=== PATIENT | female | born 1940 | race Caucasian/White ===

== ENCOUNTER 2018-05-08 21:02 | Observation (INO) ==
[2018-05-08 21:56] LABS: Baso # (Auto) 0.1 th/mm3 (0.0-0.2); Baso % (Auto) 0.4 % (0.0-2.0); Eos # (Auto) 0.1 th/mm3 (0.0-0.4); Eos % (Auto) 0.6 % (0.0-4.0); Hematocrit 36.2 % (35.0-46.0); Hemoglobin 12.2 gm/dL (11.6-15.3); Lymph # (Auto) 1.2 th/mm3 (1.0-4.8); Lymph % (Auto) 9.9 % (9.0-44.0); Mean Corpuscular HGB Conc 33.8 % (32.0-36.0); Mean Corpuscular Hemoglobin 32.9 pg (27.0-34.0); Mean Corpuscular Volume 97.4 fL (80.0-100.0); Mean Platelet Volume 8.4 fL (7.0-11.0); Mono # (Auto) 0.7 th/mm3 (0.0-0.9); Mono % (Auto) 5.7 % (0.0-8.0); Neut % (Auto) 83.4 % (16.0-70.0); Platelet Count 289 th/mm3 (150-450); Red Blood Count 3.72 mil/mm3 (4.00-5.30); Red Cell Distribution Width 13.9 % (11.6-17.2)
--- NOTE | 2018-05-08 21:58 | ED ---
HPI General Chief complaint: Psychiatric Symptoms Stated complaint: Psych Screen/[facility] Time Seen by Provider: 05/08/18 21:04 Source: patient, EMS and police Mode of arrival: EMS Limitations: no limitations History of Present Illness HPI narrative: Patient is a 78-year-old female presenting to the emergency department under Nick act for psychiatric evaluation. Patient presented to the emergency department via EMS, she was found by police during a well check on her floor at home. Patient was unable to stand, her home was deplorable, covered in cat feces. Patient was sitting in her own feces and urine. Patient left AMA from [facility] with a man named Albaro 3 days ago. Patient apparently hired this man to help take care of her, police report that he has stolen her money and her house is in a deplorable condition. Patient has been eating the same plate of leftover food for the last 2 days. Patient wears oxygen, 2 L continuously secondary to COPD. She is has not had any in several days, she states that Albaro told her that she was doing good without it. DCF was notified by the police department. Patient presented complaining of midsternal chest pain. She denied any radiation. She states she felt nauseated when the chest pain started prior to arrival. Patient denies any other complaints. She denies any abdominal pain, fever, chills, headache, head injury. Related Data Home Medications Medication Instructions Recorded Confirmed dexlansoprazole [Dexilant] 60 mg PO DAILY 05/08/18 05/08/18 hydrocodone-acetaminophen 1 tab PO Q4-6H PRN 05/08/18 05/08/18 levothyroxine 50 mcg PO DAILY 05/08/18 05/08/18 meclizine 25 mg PO TID 05/08/18 05/08/18 nebivolol [Bystolic] 20 mg PO DAILY 05/08/18 05/08/18 diazepam [Valium] 5 mg TID PRN 05/09/18 05/09/18 Previous Rx's Medication Instructions Recorded acidophilus-sporogenes 1 tab PO TID #36 tab 05/10/18 [Acidophilus Ex Str (L. sporog)] budesonide-formoterol [Symbicort] 2 puff INH BID g 05/10/18 ipratropium-albuterol 1 amp NEB Q4HR NEB PRN ml 05/10/18 levofloxacin [Levaquin] 750 mg PO DAILY #5 tab 05/10/18 nystatin [Nystop] 1 applicatio TOPICAL QID #1 g 05/10/18 prednisone 40 mg PO DAILY #6 tab 05/10/18 Allergies Allergy/AdvReac Type Severity Reaction Status Date / Time penicillin G Allergy Severe Swelling Verified 05/08/18 21:32 Sulfa (Sulfonamide Allergy Severe Swelling Verified 05/08/18 21:32 Antibiotics) diphenhydramine Allergy Intermediate Swelling Verified 05/08/18 21:32 naproxen Allergy Intermediate Swelling Verified 05/08/18 21:32 verapamil Allergy Intermediate Swelling Verified 05/08/18 21:32 TAPE Allergy Intermediate Swelling Uncoded 05/08/18 21:32 *MDRO Multi-Drug Resistant AdvReac Unknown Swelling Uncoded 05/08/18 21:32 Organism Review of Systems ROS: all other systems reviewed are negative [facility] Medical History Medical History COPD (chronic obstructive pulmonary disease) (Acute) High cholesterol (Acute) Hypertension (Acute) Hypothyroidism (Acute) Legally blind (Acute) Surgical History Surgical History History of back surgery (Acute) Hx of removal of ovary (Acute) Family History Family History Other No pertinent family history Social History Social History Substance History: No History of Abuse Second Hand Smoke Exposure: No Smoking Status: Former smoker How Often Do You Have a Drink Containing Alcohol: Monthly or less Immunization History Tetanus Immunization: Unsure Exam Narrative Exam Narrative: GENERAL: Overweight, well-developed, disheveled elderly female. Presenting in no acute distress. SKIN: Focused skin assessment warm/dry. Erythema to bilateral buttocks. HEAD: Atraumatic. Normocephalic. EYES: Pupils equal and round. No scleral icterus. No injection or drainage. ENT: No nasal bleeding or discharge. Mucous membranes pink and moist. NECK: Trachea midline. No JVD. CARDIOVASCULAR: Regular rate and rhythm. No murmur appreciated. RESPIRATORY: No accessory muscle use. Coarse breath sounds throughout GASTROINTESTINAL: Abdomen soft, non-tender, nondistended. Hepatic and splenic margins not palpable. MUSCULOSKELETAL: No obvious deformities. No clubbing. No cyanosis. No edema. NEUROLOGICAL: Awake and alert. No obvious cranial nerve deficits. Motor grossly within normal limits. Normal speech. PSYCHIATRIC: Appropriate mood and affect; insight and judgment normal. Course Initial Documented Vital Signs Temperature 98.7 F 05/08/18 21:05 Pulse Rate 68 05/08/18 21:05 Respiratory Rate 20 05/08/18 21:05 Blood Pressure 131/60 05/08/18 21:05 Pulse Oximetry 90 L 05/08/18 21:05 Last Documented Vital Signs Temperature 98.7 F 05/10/18 14:18 Pulse Rate 61 05/10/18 14:18 Respiratory Rate 18 05/10/18 14:18 Blood Pressure 148/65 H 05/10/18 14:18 Pulse Oximetry 93 L 05/10/18 14:22 Medical Decision Making MDM Narrative Medical decision making narrative: Patient presented under Nick act for psychiatric evaluation however she complained of midsternal chest pain, chest pain workup initiated. Patient's vital signs are stable, duo nebs ordered, psych screen ordered. Compliance with meds is questionable since she left AMA from [place]. Care of patient transferred to Dr. Trinidad who will determine disposition. 23:05 PM. UA positive WBC. Patient was admitted for COPD acute exacerbation, UTI, chest pain. Patient was given albuterol with Atrovent unit of treatment. Levaquin 750 mg IV given. O2 2 L nasal cannula. Medical Screen Exam Complete: Yes Emergency Medical Condition: Yes Differential Diagnosis Differential Diagnosis: ACS versus USA versus metabolic abnormality versus neglect versus other Medical Records Medical records reviewed: Yes I reviewed the patient's medical records. Lab Data Lab results reviewed: Yes I reviewed the patient's lab results. Result diagrams: 05/09/18 07:30 05/09/18 07:30 Lab Results 05/08/18 05/08/18 05/08/18 Range/Units 21:45 21:45 21:45 WBC 12.0 H (4.0-11.0) th/mm3 RBC 3.72 L (4.00-5.30) mil/mm3 Hgb 12.2 (11.6-15.3) gm/dL Hct 36.2 (35.0-46.0) % MCV 97.4 (80.0-100.0) fL MCH 32.9 (27.0-34.0) pg MCHC 33.8 (32.0-36.0) % RDW 13.9 (11.6-17.2) % Plt Count 289 (150-450) th/mm3 MPV 8.4 (7.0-11.0) fL Neut % (Auto) 83.4 H (16.0-70.0) % Lymph % (Auto) 9.9 (9.0-44.0) % [place] % (Auto) 5.7 (0.0-8.0) % Eos % (Auto) 0.6 (0.0-4.0) % Baso % (Auto) 0.4 (0.0-2.0) % Neut # (Auto) 10.0 H (1.8-7.7) th/mm3 Lymph # (Auto) 1.2 (1.0-4.8) th/mm3 [place] # (Auto) 0.7 (0.0-0.9) th/mm3 Eos # (Auto) 0.1 (0.0-0.4) th/mm3 Baso # (Auto) 0.1 (0.0-0.2) th/mm3 WBC Differential . Differential Comment Auto diff final PT 11.3 (9.8-11.6) sec INR 1.1 Ratio APTT 26.9 (23.4-31.7) sec Sodium 134 L (136-145) meq/L Potassium 3.5 (3.5-5.1) meq/L Chloride 97 L (98-107) meq/L Carbon Dioxide 29.7 (21.0-32.0) meq/L Anion Gap 7 (5-15) meq/L BUN 11 (7-18) mg/dL Creatinine 0.83 (0.50-1.00) mg/dL Estimated GFR 67 L (>89) mL/min Random Glucose 100 (74-106) mg/dL Calcium 9.0 (8.5-10.1) mg/dL Magnesium 1.6 (1.5-2.5) mg/dL Total Bilirubin 0.3 (0.2-1.0) mg/dL AST 58 H (15-37) U/L ALT 27 (10-53) U/L Alkaline Phosphatase 106 (45-117) U/L Total Creatine Kinase (26-192) U/L CK-MB (CK-2) (0.5-3.6) ng/mL CK-MB (CK-2) % (0.0-4.0) % Troponin I Less than 0.02 L (0.02-0.05) ng/mL B-Natriuretic Peptide (0-100) pg/mL Total Protein 6.6 (6.4-8.2) g/dL Albumin 2.6 L (3.4-5.0) g/dL TSH 1.280 (0.358-3.740) uIU/mL Urine Color (Yellw/Straw) Urine Clarity (Clear) Urine pH (5.0-8.5) Ur Specific [place] (1.002-1.035) Urine Protein (Neg-Trace) mg/dL Urine Glucose (UA) (Negative) mg/dL Urine Ketones (Negative) mg/dL Urine Occult Blood (Negative) Urine Nitrate (Negative) Urine Bilirubin (Negative) Urine Urobilinogen (Less than 2) mg/dL Ur Leukocyte Esterase (Negative) Urine RBC (0-3) /hpf Urine WBC (0-5) /hpf Urine WBC Clumps (None) Ur Squamous Epith Cells (0-5) /hpf Urine Bacteria (None) /hpf Hyaline Casts (0-3) /lpf Urine Mucus (Occasional) /lpf Micro UA Comment Ur Microscopic Review Urine Culture Comments Stl C.difficile DNA Amp (Negative) St C. diff Tox Epid 027 (Negative) Urine Opiates Screen (Neg) Ur Barbiturates Screen (Neg) Ur Amphetamines Screen (Neg) U Benzodiazepines Scrn (Neg) Urine Cocaine Screen (Neg) U Cannabinoids Screen (Neg) 05/08/18 05/08/18 05/08/18 Range/Units 21:45 22:00 22:25 WBC (4.0-11.0) th/mm3 RBC (4.00-5.30) mil/mm3 Hgb (11.6-15.3) gm/dL Hct (35.0-46.0) % MCV (80.0-100.0) fL MCH (27.0-34.0) pg MCHC (32.0-36.0) % RDW (11.6-17.2) % Plt Count (150-450) th/mm3 MPV (7.0-11.0) fL Neut % (Auto) (16.0-70.0) % Lymph % (Auto) (9.0-44.0) % [place] % (Auto) (0.0-8.0) % Eos % (Auto) (0.0-4.0) % Baso % (Auto) (0.0-2.0) % Neut # (Auto) (1.8-7.7) th/mm3 Lymph # (Auto) (1.0-4.8) th/mm3 [place] # (Auto) (0.0-0.9) th/mm3 Eos # (Auto) (0.0-0.4) th/mm3 Baso # (Auto) (0.0-0.2) th/mm3 WBC Differential Differential Comment PT (9.8-11.6) sec INR Ratio APTT (23.4-31.7) sec Sodium (136-145) meq/L Potassium (3.5-5.1) meq/L Chloride (98-107) meq/L Carbon Dioxide (21.0-32.0) meq/L Anion Gap (5-15) meq/L BUN (7-18) mg/dL Creatinine (0.50-1.00) mg/dL Estimated GFR (>89) mL/min Random Glucose (74-106) mg/dL Calcium (8.5-10.1) mg/dL Magnesium (1.5-2.5) mg/dL Total Bilirubin (0.2-1.0) mg/dL AST (15-37) U/L ALT (10-53) U/L Alkaline Phosphatase (45-117) U/L Total Creatine Kinase 523 H (26-192) U/L CK-MB (CK-2) 4.3 H (0.5-3.6) ng/mL CK-MB (CK-2) % 0.8 (0.0-4.0) % Troponin I (0.02-0.05) ng/mL B-Natriuretic Peptide 50 (0-100) pg/mL Total Protein (6.4-8.2) g/dL Albumin (3.4-5.0) g/dL TSH (0.358-3.740) uIU/mL Urine Color Yellow (Yellw/Straw) Urine Clarity Hazy H (Clear) Urine pH 5.0 (5.0-8.5) Ur Specific [place] 1.006 (1.002-1.035) Urine Protein Negative (Neg-Trace) mg/dL Urine Glucose (UA) Negative (Negative) mg/dL Urine Ketones Negative (Negative) mg/dL Urine Occult Blood Small H (Negative) Urine Nitrate Positive H (Negative) Urine Bilirubin Negative (Negative) Urine Urobilinogen Less than 2 (Less than 2) mg/dL Ur Leukocyte Esterase Moderate H (Negative) Urine RBC 1 (0-3) /hpf Urine WBC 30 H (0-5) /hpf Urine WBC Clumps Few H (None) Ur Squamous Epith Cells <1 (0-5) /hpf Urine Bacteria Rare H (None) /hpf Hyaline Casts 1 (0-3) /lpf Urine Mucus Few H (Occasional) /lpf Micro UA Comment Cath-culture ind Ur Microscopic Review Not Reportable Urine Culture Comments Cath-cult indicated Stl C.difficile DNA Amp (Negative) St C. diff Tox Epid 027 (Negative) Urine Opiates Screen (Neg) Ur Barbiturates Screen (Neg) Ur Amphetamines Screen (Neg) U Benzodiazepines Scrn (Neg) Urine Cocaine Screen (Neg) U Cannabinoids Screen (Neg) 05/09/18 05/09/18 05/09/18 Range/Units 07:30 07:30 10:11 WBC 7.5 (4.0-11.0) th/mm3 RBC 3.59 L (4.00-5.30) mil/mm3 Hgb 11.7 (11.6-15.3) gm/dL Hct 35.3 (35.0-46.0) % MCV 98.5 (80.0-100.0) fL MCH 32.7 (27.0-34.0) pg MCHC 33.2 (32.0-36.0) % RDW 14.0 (11.6-17.2) % Plt Count 214 (150-450) th/mm3 MPV 8.9 (7.0-11.0) fL Neut % (Auto) 93.2 H (16.0-70.0) % Lymph % (Auto) 5.8 L (9.0-44.0) % [place] % (Auto) 0.7 (0.0-8.0) % Eos % (Auto) 0.1 (0.0-4.0) % Baso % (Auto) 0.2 (0.0-2.0) % Neut # (Auto) 7.0 (1.8-7.7) th/mm3 Lymph # (Auto) 0.4 L (1.0-4.8) th/mm3 [place] # (Auto) 0.1 (0.0-0.9) th/mm3 Eos # (Auto) 0.0 (0.0-0.4) th/mm3 Baso # (Auto) 0.0 (0.0-0.2) th/mm3 WBC Differential . Differential Comment Auto diff final PT (9.8-11.6) sec INR Ratio APTT (23.4-31.7) sec Sodium 138 (136-145) meq/L Potassium 3.9 (3.5-5.1) meq/L Chloride 100 (98-107) meq/L Carbon Dioxide 30.2 (21.0-32.0) meq/L Anion Gap 8 (5-15) meq/L BUN 10 (7-18) mg/dL Creatinine 0.82 (0.50-1.00) mg/dL Estimated GFR 68 L (>89) mL/min Random Glucose 190 H (74-106) mg/dL Calcium 8.8 (8.5-10.1) mg/dL Magnesium (1.5-2.5) mg/dL Total Bilirubin 0.3 (0.2-1.0) mg/dL AST 45 H (15-37) U/L ALT 25 (10-53) U/L Alkaline Phosphatase 98 (45-117) U/L Total Creatine Kinase (26-192) U/L CK-MB (CK-2) (0.5-3.6) ng/mL CK-MB (CK-2) % (0.0-4.0) % Troponin I Less than 0.02 L (0.02-0.05) ng/mL B-Natriuretic Peptide (0-100) pg/mL Total Protein 6.3 L (6.4-8.2) g/dL Albumin 2.3 L (3.4-5.0) g/dL TSH (0.358-3.740) uIU/mL Urine Color (Yellw/Straw) Urine Clarity (Clear) Urine pH (5.0-8.5) Ur Specific [place] (1.002-1.035) Urine Protein (Neg-Trace) mg/dL Urine Glucose (UA) (Negative) mg/dL Urine Ketones (Negative) mg/dL Urine Occult Blood (Negative) Urine Nitrate (Negative) Urine Bilirubin (Negative) Urine Urobilinogen (Less than 2) mg/dL Ur Leukocyte Esterase (Negative) Urine RBC (0-3) /hpf Urine WBC (0-5) /hpf Urine WBC Clumps (None) Ur Squamous Epith Cells (0-5) /hpf Urine Bacteria (None) /hpf Hyaline Casts (0-3) /lpf Urine Mucus (Occasional) /lpf Micro UA Comment Ur Microscopic Review Urine Culture Comments Stl C.difficile DNA Amp Negative (Negative) St C. diff Tox Epid 027 Negative (Negative) Urine Opiates Screen (Neg) Ur Barbiturates Screen (Neg) Ur Amphetamines Screen (Neg) U Benzodiazepines Scrn (Neg) Urine Cocaine Screen (Neg) U Cannabinoids Screen (Neg) 05/09/18 Range/Units 11:34 WBC (4.0-11.0) th/mm3 RBC (4.00-5.30) mil/mm3 Hgb (11.6-15.3) gm/dL Hct (35.0-46.0) % MCV (80.0-100.0) fL MCH (27.0-34.0) pg MCHC (32.0-36.0) % RDW (11.6-17.2) % Plt Count (150-450) th/mm3 MPV (7.0-11.0) fL Neut % (Auto) (16.0-70.0) % Lymph % (Auto) (9.0-44.0) % [place] % (Auto) (0.0-8.0) % Eos % (Auto) (0.0-4.0) % Baso % (Auto) (0.0-2.0) % Neut # (Auto) (1.8-7.7) th/mm3 Lymph # (Auto) (1.0-4.8) th/mm3 [place] # (Auto) (0.0-0.9) th/mm3 Eos # (Auto) (0.0-0.4) th/mm3 Baso # (Auto) (0.0-0.2) th/mm3 WBC Differential Differential Comment PT (9.8-11.6) sec INR Ratio APTT (23.4-31.7) sec Sodium (136-145) meq/L Potassium (3.5-5.1) meq/L Chloride (98-107) meq/L Carbon Dioxide (21.0-32.0) meq/L Anion Gap (5-15) meq/L BUN (7-18) mg/dL Creatinine (0.50-1.00) mg/dL Estimated GFR (>89) mL/min Random Glucose (74-106) mg/dL Calcium (8.5-10.1) mg/dL Magnesium (1.5-2.5) mg/dL Total Bilirubin (0.2-1.0) mg/dL AST (15-37) U/L ALT (10-53) U/L Alkaline Phosphatase (45-117) U/L Total Creatine Kinase (26-192) U/L CK-MB (CK-2) (0.5-3.6) ng/mL CK-MB (CK-2) % (0.0-4.0) % Troponin I (0.02-0.05) ng/mL B-Natriuretic Peptide (0-100) pg/mL Total Protein (6.4-8.2) g/dL Albumin (3.4-5.0) g/dL TSH (0.358-3.740) uIU/mL Urine Color (Yellw/Straw) Urine Clarity (Clear) Urine pH (5.0-8.5) Ur Specific [place] (1.002-1.035) Urine Protein (Neg-Trace) mg/dL Urine Glucose (UA) (Negative) mg/dL Urine Ketones (Negative) mg/dL Urine Occult Blood (Negative) Urine Nitrate (Negative) Urine Bilirubin (Negative) Urine Urobilinogen (Less than 2) mg/dL Ur Leukocyte Esterase (Negative) Urine RBC (0-3) /hpf Urine WBC (0-5) /hpf Urine WBC Clumps (None) Ur Squamous Epith Cells (0-5) /hpf Urine Bacteria (None) /hpf Hyaline Casts (0-3) /lpf Urine Mucus (Occasional) /lpf Micro UA Comment Ur Microscopic Review Urine Culture Comments Stl C.difficile DNA Amp (Negative) St C. diff Tox Epid 027 (Negative) Urine Opiates Screen Pos H (Neg) Ur Barbiturates Screen Neg (Neg) Ur Amphetamines Screen Neg (Neg) U Benzodiazepines Scrn Pos H (Neg) Urine Cocaine Screen Neg (Neg) U Cannabinoids Screen Neg (Neg) Imaging Data Attestation: I personally reviewed and interpreted this imaging study as follows : Radiologist's impression: Chest X-Ray 05/08/18 21:41 CONCLUSION: The lungs are clear. Discharge Plan Discharge Disposition Patient Disposition: 30 Still Patient Discharge Condition Condition: Stable Discharge Order Discharge Orders: Discharge Order (Routine); Ordered 05/10/18 Ordered By: Perry Mancuso Discharge Details Discharge Comment: medically stable and cleared for dc to Psych unit Diagnosis: COPD with acute exacerbation, Acute UTI, Chest pain Physicians Team ED Provider: Guevara Trinidad ED Midlevel Provider: Maria D Brewster Primary Care Provider: Gary Lal Attending Provider: Perry Mancuso Other Providers: [facility],Insurance ; Jonathan Durand Status ED Status: Left Department Discharge Information Discharge Date/Time: 05/09/18 01:53
[2018-05-08 22:10] LABS: Activated Partial Thrombo Time 26.9 sec (23.4-31.7); INR 1.1 Ratio; Prothrombin Time 11.3 sec (9.8-11.6)
[2018-05-08 22:27] LABS: Albumin 2.6 g/dL (3.4-5.0); Anion Gap 7 meq/L (5-15); Aspartate Aminotransferase 58 U/L (15-37); Blood Urea Nitrogen 11 mg/dL (7-18); Carbon Dioxide 29.7 meq/L (21.0-32.0); Chloride 97 meq/L (98-107); Glomerular Filtration Rate 67 mL/min (>89); Glucose,Random 100 mg/dL (74-106); Magnesium 1.6 mg/dL (1.5-2.5); Potassium 3.5 meq/L (3.5-5.1); Sodium 134 meq/L (136-145)
[2018-05-08 22:28] LABS: Alanine Aminotransferase 27 U/L (10-53)
[2018-05-08 22:38] LABS: Alkaline Phosphatase 106 U/L (45-117); Total Protein 6.6 g/dL (6.4-8.2)
[2018-05-08 22:54] LABS: Bacteria,Urine Rare /hpf; Bilirubin,Urine Negative (Negative); Clarity,Urine Hazy (Clear); Color,Urine Yellow (Yellw/Straw); Glucose,Urine (UA) Negative (Negative); Hyaline Casts,Urine 1 /lpf (0-3); Leukocyte Esterase,Urine Moderate (Negative); Mucus,Urine Few /lpf (Occasional); Nitrite,Urine Positive (Negative); Specific Gravity,Urine 1.006 (1.002-1.035); Squamous Epithelial Cell,Urine <1 /hpf (0-5)
--- NOTE | 2018-05-08 22:58 | XR ---
EXAM DATE: 05/08/2018 10:55 PM EST AGE/SEX: 78 years / Female INDICATIONS: Shortness of breath. CLINICAL DATA: This is the patient's initial encounter. Patient reports that signs and symptoms have been present for 1 day and indicates a pain score of 2/10. MEDICAL/SURGICAL HISTORY: Chronic obstructive pulmonary disease. Hypertension. Hypercholester olemia. Hypothyroidism. Legally blind . Back surgery. Ovary removal. COMPARISON: No prior exams available for comparison. FINDINGS: Mild patient rotation towards the right. A single AP view of the chest demonstrates the lungs to be s ymmetrically aerated without evidence of mass, infiltrate or effusion. The cardiomediastinal contour s are unremarkable. Osseous structures are intact. CONCLUSION: The lungs are clear. Electronically signed by: Leonid Wong MD 05/08/2018 10:57 PM EST
[2018-05-08] MEDS ORDERED: MethylPREDNISolone Sod Succinate Inj 125 MG/2 ML Vial IV.PUSH ONE (23:07)
[2018-05-08] MEDS ORDERED: Acetaminophen 325 MG Tablet PO PRN (23:12)
[2018-05-08] MEDS ORDERED: Bisacodyl 10 MG Supp RECTAL PRN (23:12)
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
[2018-05-08] MEDS ORDERED: Sodium Chloride 0.9% 2 ML Flush PRN IV.FLUSH (23:25)
[2018-05-09 01:48] LABS: CKMB Percent 0.8 % (0.0-4.0); Creatine Kinase MB 4.3 ng/mL (0.5-3.6)
[2018-05-09] MEDS ORDERED: MethylPREDNISolone Sod Succinate Inj 40 MG/ML Vial IV.PUSH SCH (06:00)
[2018-05-09] MEDS: Levothyroxine 50 MCG Tablet PO SCH (06:07)
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
[2018-05-09 08:42] LABS: Baso % (Auto) 0.2 % (0.0-2.0); Eos % (Auto) 0.1 % (0.0-4.0); Hematocrit 35.3 % (35.0-46.0); Hemoglobin 11.7 gm/dL (11.6-15.3); Lymph # (Auto) 0.4 th/mm3 (1.0-4.8); Lymph % (Auto) 5.8 % (9.0-44.0); Mean Corpuscular HGB Conc 33.2 % (32.0-36.0); Mean Corpuscular Hemoglobin 32.7 pg (27.0-34.0); Mean Corpuscular Volume 98.5 fL (80.0-100.0); Mean Platelet Volume 8.9 fL (7.0-11.0); Mono # (Auto) 0.1 th/mm3 (0.0-0.9); Mono % (Auto) 0.7 % (0.0-8.0); Neut % (Auto) 93.2 % (16.0-70.0); Platelet Count 214 th/mm3 (150-450); Red Blood Count 3.59 mil/mm3 (4.00-5.30); White Blood Count 7.5 th/mm3 (4.0-11.0)
[2018-05-09 08:50] LABS: Albumin 2.3 g/dL (3.4-5.0); Anion Gap 8 meq/L (5-15); Aspartate Aminotransferase 45 U/L (15-37); Blood Urea Nitrogen 10 mg/dL (7-18); Calcium 8.8 mg/dL (8.5-10.1); Carbon Dioxide 30.2 meq/L (21.0-32.0); Chloride 100 meq/L (98-107); Glomerular Filtration Rate 68 mL/min (>89); Glucose,Random 190 mg/dL (74-106); Potassium 3.9 meq/L (3.5-5.1); Sodium 138 meq/L (136-145)
[2018-05-09 08:51] LABS: Alanine Aminotransferase 25 U/L (10-53)
[2018-05-09 08:55] LABS: Alkaline Phosphatase 98 U/L (45-117); Total Protein 6.3 g/dL (6.4-8.2)
[2018-05-09] MEDS ORDERED: cloNIDine Susp (NICU) 20 MCG/ML 30 ML Bottle PO PRN (09:41)
[2018-05-09] MEDS: Budesonide-Formoterol 160/4.5 MCG 6 GM Inhaler INH SCH ×2 (10:01→20:02)
[2018-05-09] MEDS: guaiFENesin 600 MG ER Tablet PO SCH ×2 (10:02→20:02)
[2018-05-09] MEDS: Senna/Docusate Sodium 8.6/50 MG Tablet PO SCH ×2 (10:02→20:02)
[2018-05-09] MEDS: Sodium Chloride 0.9% 2 ML Flush BID IV.FLUSH SCH ×2 (10:02→20:03)
[2018-05-09] MEDS: predniSONE 20 MG Tablet PO SCH (10:07)
[2018-05-09 12:01] LABS: Amphetamine Screen,Urine Neg (Neg); Barbiturate Screen,Urine Neg (Neg); Cannabinoid Screen,Urine Neg (Neg); Cocaine Screen,Urine Neg (Neg)
[2018-05-09 12:10] LABS: Opiate Screen,Urine Pos (Neg)
[2018-05-09] MEDS: Nystatin 100,000 UNITS/GM Powder 15 GM Bottle TOPICAL SCH ×3 (13:08→20:03)
[2018-05-09] MEDS: Lactobacillus Acidophilus/L. Spores Tablet PO SCH ×2 (13:08→18:26)
[2018-05-09] MEDS: Morphine Sulfate Inj 2 MG/ML Vial IV.PUSH PRN (15:47)
--- NOTE | 2018-05-09 16:22 | ECG ---
Date Performed: 05/09/2018 Time Performed: 09:05:05 PTAGE: 78 years EKG: Sinus rhythm with PAC's Left [place] deviation Low voltage PREVIOUS TRACING : 05/08/2018 22.31 Compared to previous tracing, there is a rhythm mukherjee e from atrial fibrillation to sinus rhythm. DOCTOR: Gary Montiel Interpretating Date/Time 05/09/2018 16:22:10
--- NOTE | 2018-05-09 16:22 | ECG ---
Date Performed: 05/08/2018 Time Performed: 22:31:20 PTAGE: 78 years EKG: ATRIAL FIBRILLATION Left [place] deviation Poor R-wave progression, whcih may be a normal vari ant for a generalized low voltage PREVIOUS TRACING : 09/19/2014 11.45 Compared to previous tracing, there is arhythm change from Sinus rhythm to atrial fibrillation DOCTOR: Gary Monitel Interpretating Date/Time 05/09/2018 16:21:12
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
[2018-05-10] MEDS: Morphine Sulfate Inj 2 MG/ML Vial IV.PUSH PRN (02:28)
[2018-05-10] MEDS: Levothyroxine 50 MCG Tablet PO SCH (08:09)
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
[2018-05-10] MEDS ORDERED: Heparin - SQ 10,000 UNITS/ML Vial SQ SCH (09:00)
[2018-05-10] MEDS: predniSONE 20 MG Tablet PO SCH (09:11)
[2018-05-10] MEDS: guaiFENesin 600 MG ER Tablet PO SCH (09:12)
[2018-05-10] MEDS: Lactobacillus Acidophilus/L. Spores Tablet PO SCH ×2 (09:13→14:31)
[2018-05-10] MEDS: Budesonide-Formoterol 160/4.5 MCG 6 GM Inhaler INH SCH (09:15)
[2018-05-10] MEDS: Senna/Docusate Sodium 8.6/50 MG Tablet PO SCH (09:16)
[2018-05-10] MEDS: Sodium Chloride 0.9% 2 ML Flush BID IV.FLUSH SCH (09:17)
[2018-05-10 11:34] VITALS: RESP 18
[2018-05-10] MEDS: Nystatin 100,000 UNITS/GM Powder 15 GM Bottle TOPICAL SCH ×2 (11:38→14:31)
[2018-05-10 14:21] VITALS: BP 148/65; PULSE 61; TEMP 98.7
[2018-05-10 14:23] VITALS: O2SAT 93
== END 2018-05-10 13:31 ==
LOC: NEDA 21:02 → NEPD 21:02 → NEPFCDU 05-09 00:17
PROVIDERS: ADMIT Internal Medicine; ATTEND Internal Medicine
DX: Z79.899 Other long term (current) drug therapy; I10 Essential (primary) hypertension; B96.89 Other specified bacterial agents as the cause of diseases classified elsewhere; Z87.891 Personal history of nicotine dependence; H54.8 Legal blindness, as defined in USA; Z79.51 Long term (current) use of inhaled steroids; Z99.81 Dependence on supplemental oxygen; N39.0 Urinary tract infection, site not specified; J96.20 Acute and chronic respiratory failure, unspecified whether with hypoxia or hypercapnia; G31.84 Mild cognitive impairment of uncertain or unknown etiology; E78.5 Hyperlipidemia, unspecified; E03.9 Hypothyroidism, unspecified; E66.3 Overweight; J44.1 Chronic obstructive pulmonary disease with (acute) exacerbation

== ENCOUNTER 2018-05-10 12:22 | Inpatient (IN) ==
[2018-05-10] MEDS ORDERED: Bisacodyl 10 MG Supp RECTAL PRN (18:19)
[2018-05-10] MEDS ORDERED: Aluminum/Magnesium/Simethacone Susp 30 ML UDC PO PRN (18:19)
[2018-05-10] MEDS: Levothyroxine 50 MCG Tablet PO SCH (21:10)
[2018-05-10] MEDS: predniSONE 20 MG Tablet PO SCH (21:10)
[2018-05-10] MEDS: Budesonide-Formoterol 160/4.5 MCG 6 GM Inhaler INH SCH (23:08)
[2018-05-10] MEDS: Senna/Docusate Sodium 8.6/50 MG Tablet PO SCH (23:09)
[2018-05-11] MEDS: Levothyroxine 50 MCG Tablet PO SCH (05:18)
[2018-05-11 09:09] LABS: Calcium 8.9 mg/dL (8.5-10.1); Carbon Dioxide 31.8 meq/L (21.0-32.0); Chol/HDL Ratio 3.56 Ratio; HDL Cholesterol 46.8 mg/dL (40.0-60.0)
[2018-05-11 09:16] LABS: Hemoglobin A1c 4.5 % (4.3-6.0)
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
--- NOTE | 2018-05-11 09:26 | P.TTN ---
- Patient Problems Problems: 1. Discharge planning 2. Medication compliance 3. Knowledge deficit 4. Lack of coping skills - Progress Toward Goals Provider Present: Dr. Elizabeth Kerr Provider Input: 05/11/18: Pt has not been seen by this MD as yet, scheduled assessment today. Group Spec/RT/OT/LAUREANO Input: 05/11/18: New pt; no hx yet - Discharge Plan 05/11/18: Pt was living at [facility], anticipated to return when stable and when facility can re-accept. - Documentation Teaching Recipient: Patient
[2018-05-11] MEDS: Senna/Docusate Sodium 8.6/50 MG Tablet PO SCH ×2 (11:35→21:27)
[2018-05-11] MEDS: Budesonide-Formoterol 160/4.5 MCG 6 GM Inhaler INH SCH ×2 (11:35→21:34)
[2018-05-11] MEDS: predniSONE 20 MG Tablet PO SCH (11:35)
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
[2018-05-11] MEDS: levoFLOXacin 750 MG Tablet PO SCH (21:26)
[2018-05-11] MEDS: guaiFENesin 600 MG ER Tablet PO SCH (21:27)
[2018-05-12] MEDS: Levothyroxine 50 MCG Tablet PO SCH (05:30)
[2018-05-12] MEDS: guaiFENesin 600 MG ER Tablet PO SCH ×2 (09:12→21:59)
[2018-05-12] MEDS: Budesonide-Formoterol 160/4.5 MCG 6 GM Inhaler INH SCH ×2 (09:12→21:59)
[2018-05-12] MEDS: Senna/Docusate Sodium 8.6/50 MG Tablet PO SCH ×2 (09:12→21:59)
[2018-05-12] MEDS: predniSONE 20 MG Tablet PO SCH (09:13)
[2018-05-12 09:33] LABS: Calcium 9.3 mg/dL (8.5-10.1); Carbon Dioxide 30.1 meq/L (21.0-32.0); Potassium 3.5 meq/L (3.5-5.1)
--- NOTE | 2018-05-12 11:28 | P.PNPSY ---
Subjective Chief Complaint: Nick Act Remarks: Patient seen and examined. Chart reviewed. Case discussed with nursing staff who reports patient has been fearful and catastrophizing. Case discussed with counselor who has been in communication with [facility] but has not yet been able to identify anyone to serve as health care surrogate. Case discussed with Dr. Grossman from neuropsychology as well as with Mr. Enciso occupational therapist. On my examination today, patient is sitting in the day area. She appears fairly dysphoric. She remains forgetful. She complains of feeling tired. She continues to catastrophize. No acute physical complaints. Laboratory Tests 05/11/18 05/11/18 05/11/18 07:51 07:51 14:28 Sodium Potassium Chloride Carbon Dioxide BUN Creatinine Estimated GFR Random Glucose Hemoglobin A1c 4.5 Calcium Magnesium 1.9 Total Creatine Kinase 57 Thiamine Vitamin B12 450 Folate 12.0 RPR HIV 1&2 Ab/P24 Ag 4thGn 05/11/18 05/11/18 05/11/18 14:28 14:28 14:28 Sodium Potassium Chloride Carbon Dioxide BUN Creatinine Estimated GFR Random Glucose Hemoglobin A1c Calcium Magnesium Total Creatine Kinase Thiamine Pending Vitamin B12 Folate RPR Nonreactive HIV 1&2 Ab/P24 Ag 4thGn Nonreactive 05/12/18 08:39 Sodium 145 Potassium 3.5 Chloride 107 Carbon Dioxide 30.1 BUN 15 Creatinine 0.87 Estimated GFR 63 L Random Glucose 150 H Hemoglobin A1c Calcium 9.3 Magnesium Total Creatine Kinase Thiamine Vitamin B12 Folate RPR HIV 1&2 Ab/P24 Ag 4thGn Labs reviewed. Patient was reportedly taken for Head CT but refused; will try again to obtain later. Review of Systems unobtainable due to mental condition Mental Status Examination Appearance: Disheveled Consciousness: Alert Orientation: Person Motor Activity: Other (No motor abnormalities noted. No signs of withdrawal noted.) Speech: Unremarkable Language: Other (Rambling) Fund of Knowledge: Inadequate Attention and Concentration: Easily distracted Memory: Impaired Mood: Anxious Affect: Blunt Thought Process & Associations: Tangential (In setting of dementia) Thought Content: Preoccupations Hallucination Type: None Delusion Type: None Suicidal Ideation: No Homicidal Ideation: No Insight: Poor Judgment: Poor Assessment and Plan - Assessment (1) Major neurocognitive disorder due to another medical condition with behavioral disturbance Code(s): F02.81 - Dementia in other diseases classified elsewhere with behavioral disturbance Status: Acute (2) COPD (chronic obstructive pulmonary disease) Code(s): J44.9 - Chronic obstructive pulmonary disease, unspecified Status: Acute - Plan Plan: Neuropsychologist suspects major NCD related to hypoxia from COPD and does not suspect significant contribution from delirium. I have adjusted diagnostic schema accordingly. Psychotropic medications remain on hold for lack of consent. Patient might benefit from low dose antipsychotic to lessen distress/ anxiety in setting of NCD. Hospitalist input noted and appreciated. Continue to monitor on inpatient unit. Continue other medications and care as ordered. Justification for Continued Inpatient Stay: Impairment in self-care. Risk for decompensation and less restrictive environment. Discharge Planning: Likely requires placement. Request Healthcare Surrogate/Guardian Advocate?: Yes
--- NOTE | 2018-05-12 11:59 | P.NPEVAL ---
Disclaimer Patient was given an explanation of the nature and purpose of the evaluation. Patient agreed to proceed with the evaluation and treatment plan. History - Reason for Referral The patient is a 78 year old believed right handed woman who was admitted to [facility] on 05/10/2018 under Nick Act due to diminished self-care activities and cognitive dysfunction. This patient is visually impaired, confused and her recent MOCA exam was 05/13. She is , high school educated, has one son, and last worked at an [employer]. Her recent lab work- up was normal. She is referred for baseline neuropsychological evaluation to assess cognitive, behavioral and emotional aspects of her condition, and to provide treatment recommendations. - Additional Psychosocial History Smoking Status: Former smoker Marital status: / Education Level: 12 Years or Less Hand Dominance: Right PMFSH - History History Provided By: Patient, Medical Record - Medical History Medical History: Medical History (Last Updated 05/11/18 @ 16:10 by Gisselle Marin) GERD (gastroesophageal reflux disease) TIA (transient ischemic attack) COPD (chronic obstructive pulmonary disease) High cholesterol Hypertension Hypothyroidism Legally blind - Surgical History Surgical History: Surgical History (Last Updated 05/11/18 @ 16:10 by Gisselel Marin) History of cholecystectomy History of back surgery Hx of removal of ovary - Family History Family History: Family History (Last Updated 05/11/18 @ 16:10 by Gisselle Marin) Other No pertinent family history - Tobacco History Second Hand Smoke Exposure: No Smoking Status: Former smoker - Alcohol History How Often Do You Have a Drink Containing Alcohol: Monthly or less - Substance Use History Substance History: No History of Abuse - Substance Use Type Other Comment: Patient denies past/presents substance use. Medications Active Medications Hydrocodone Bitart/Acetaminophen ([place] 5/325) 1 tab PO Q6H PRN PRN Reason: PAIN SCALE 6 TO 10 Last Admin: 05/11/18 16:35 Dose: 1 tab Al Hydrox/Mg Hydrox/Simethicone (Mag-Al Plus Susp Liq) 30 ml PO Q6H PRN PRN Reason: DYSPEPSIA Al Hydroxide/Mg Hydroxide (Milk Of Magnesia Liq) 30 ml PO Q12H PRN PRN Reason: Mild Constipation Albuterol (Duoneb Neb (Prn)) 1 ampul NEB Q4HR NEB PRN PRN Reason: SOB/WHEEZING Last Admin: 05/11/18 02:27 Dose: 1 ampul Albuterol (Duoneb Neb ([facility])) 1 ampul NEB Q6HR WHILE AWAKE NEB [facility] Last Admin: 05/12/18 08:04 Dose: 1 ampul Bisacodyl (Dulcolax Supp) 10 mg RECTAL DAILY PRN PRN Reason: SEVERE CONSITIPATION Budesonide/Formoterol Fumarate (Symbicort 160/4.5 Mcg Inh) 2 puff INH BID [facility] Last Admin: 05/12/18 09:12 Dose: 2 puff Guaifenesin (Mucinex Er) 600 mg PO BID [facility] Last Admin: 05/12/18 09:12 Dose: 600 mg Lactulose (Lactulose Liq) 30 ml PO DAILY PRN PRN Reason: SEVERE CONSITIPATION Levofloxacin (Levaquin) 750 mg PO Q24H [facility] Last Admin: 05/11/18 21:26 Dose: 750 mg Levothyroxine Sodium (Synthroid) 50 mcg PO DAILY@0600 [facility] Last Admin: 05/12/18 05:30 Dose: 50 mcg Nebivolol (Bystolic) 20 mg PO DAILY [facility] Last Admin: 05/12/18 09:12 Dose: 20 mg Pantoprazole Sodium (Protonix) 40 mg PO DAILY [facility] Last Admin: 05/12/18 09:12 Dose: 40 mg Prednisone (Deltasone) 40 mg PO DAILY [facility] Last Admin: 05/12/18 09:13 Dose: 40 mg Senna/Docusate Sodium (Lyn-Colace) 1 tab PO BID [facility] Last Admin: 05/12/18 09:12 Dose: 1 tab Sennosides (Senokot) 17.2 mg PO Q12H PRN PRN Reason: Moderate Constipation Mental Status Assessment - Mental Status Orientation: oriented to: Self, disoriented to: Place, Time, Situation Mental Status: Impaired: Thought processing, Language/interactions, Attention, Learning/memory, Problem-solving Absent: Hallucinations, Delusions Adjustment/Coping Assessment - Adjustment/Coping Adjustment/Coping: Severe: Awareness, Insight - Observation In terms of emotional functioning, the patient demonstrated significant challenges. This patient demonstrated no signs of agitation, impulsivity or disinhibition, nor was there remarkable evidence of a formal thought disorder or psychosis. There was no evidence of depression or anxiety. The Geriatric Depression Scale-Short Form was unable to be administered. Thought content was free from suicidal, homicidal or paranoid ideation, and thought processes were bradyphrenic and blunted. The patients mood was euthymic, and her affect was flat. The patient appears to possess minimal insight and awareness into their situation and within the limits of this brief evaluation, poor judgment. - Goals/Team Members LTG Status: Deferred STG Status: Deferred Team Members: Neuropsychologist Effort Effort: Below average Cognition Assessment - Attention/Processing Speed Rating: Impaired: Attention/processing, Language, Immediate & delayed memory, Executive, Awareness - insight adjustment Observation: The patient was alert and oriented to person, place, time and circumstances surrounding the recent hospitalization. The Mini-Mental State Exam was administered, and the patient obtained a score of 8 out of 22 points, which falls in the significantly impaired range. However, on further evaluation, specific deficits were identified. In terms of attention skills, the patient exhibited challenges. The patient was able to remain on task and remember basic but not complex verbal instructions. She was unable to spell words backwards or recite numbers in reverse. In terms of memory functioning, the patient exhibited challenges. The patients initial registration of verbal information was below normal, and the patient was unable to improve their memory with repetition. After a period of delay, the patient was unable to recall a significant amount this information from memory. More specifically, on the Luria Memory Words Test-Short Form, the patients trial one performance was 2 of 7 words, trial five performance was 4 of 7 words, the patients Total Learning score was 20 (below cut-off), and the patients Delayed recall score was 3 of 7 words (below cut-off). In terms of speech and language skills, the patient demonstrated challenges. The patient did not initiate spontaneous conversation throughout the assessment, but she did speak when spoken to. Speech was characterized by adequate prosody, grammar, and articulation, but diminished volume and rate. No remarkable dysnomic or paraphasic errors were noted either during conversational speech. Reading recognition skills and writing skills were unable to be assessed due to her visual disturbance. The patients comprehension for basic one- and two-stage commands was poor. In terms of problem-solving skills, the patient exhibited challenges. The patient s ability to understand abstraction reasoning was borderline normal, as reflected in her difficulties abstracting essential shared characteristics of objects and concepts. Mathematical reasoning skills were better, to some degree , but she still could not complete more complex problems. Speed of information processing, as evaluated by both the Letter and Category Fluency Tests was abnormal. Summary/Diagnosis - Summary/Impressions Summary: The overall constellation of neuropsychological findings in combination with her clinical history are clearly inconsistent with the normal aging process or the singular effects of emotional distress on cognition. She was oriented only to person, fluctuating attention skills, inability to learn over trials, and was unable to demonstrate memory retention at a level consistent with her age. This patient also exhibited executive function difficulties, in spite of her visual impairments. These findings are consistent with a major neurocognitive disorder, related to some extent to her hypoxia/anoxia. Delirium does not appear to be a component of her clinical presentation. Recommendations Recommendations: In my opinion, this patient does not have decision making capacity, as she is unable to appreciate a situation and its likely consequences, nor is she able to manipulate information rationally. Her neurocognitive deficits preclude her ability to return to an independent living situation, and she will require placement in an ECF on discharge.
--- NOTE | 2018-05-12 13:11 | P.CONPSY ---
Provisional Diagnosis Admission Date: May 10, 2018 13:50 [place].: 1. Cognitive dysfunction Rule-out major neurocognitive disorder, perhaps vascular or neurodegenerative in etiology Rule-out delirium due to general medical condition [place] II.: Deferred History of Present Illness Service: psychiatry Primary Care Provider: UNKNOWN History of Present Illness: Ms. Castro is a 78 year-old female with a reported history of previous antidepressant treatment who presents under a Nick act by [facility] alleging that patient left AMA from [facility]. Nick Act further alleges that patient is living in "deplorable" conditions and cannot take care of herself. Patient was initially medically admitted for COPD exacerbation and UTI and was seen in psychiatric consultation on the medical floor by Dr. Santos. Reviewing the EMR, I see no previous psychiatric contact within our system.Patient seen and examined with counselors. Chart reviewed. Case discussed with nursing staff. On my exam, patient presents as confused. Patient has visual impairments, limiting her ability to perform those components of the MOCA that require visual acuity, but her score on the remainder is 11/22, suggestive of some degree of cognitive impairment. Orientation is relatively well preserved ( 4/6 points) while she struggles more with language tasks (0/3). Patient tells me that she left [facility] because she was given a choice of going into a SNF or leaving AMA, and so she chose the latter. She insists that she was home for a single day "when DCF came and said 31 people had signed a petition to have me [employer]." She does not deny that her home was in disarray but says "I planned to clean it up tomorrow." She seems to have significant physical limitations, though, and I do question whether she would be capable of cleaning a home in the manner she describes. Patient believes that people are out to get her because she has a reverse mortgage and because they are jealous of her. She denies AVH. She denies SI/HI. Denies issues with mood, nor can I elicit any depressive or hypomanic/manic symptoms at this time. Remainder of the psychiatric ROS is negative. Patient does exhibit some somatic preoccupation and complains of nausea without emesis. The patient is a 78-year-old woman, , with a psychiatric history of depression, previously Nick acted, hospitalized due to self-care deficit. Consulted to me for second opinion. On evaluation the patient is calm, cooperative, pleasantly confused. She reports to be in a good mood, oriented in person, partially oriented in time and place. She denies depression, denies suicidal enemas ideation, she denies visual and auditory hallucinations. PMFSH - History History Provided By: Patient, Medical Record - Medical History Medical History: Medical History (Last Reviewed 05/12/18 @ 12:19 by Leonard Mariee) GERD (gastroesophageal reflux disease) TIA (transient ischemic attack) COPD (chronic obstructive pulmonary disease) High cholesterol Hypertension Hypothyroidism Legally blind - Surgical History Surgical History: Surgical History (Last Reviewed 05/12/18 @ 12:19 by Leonard Mariee) History of cholecystectomy History of back surgery Hx of removal of ovary - Family History Family History: Family History (Last Updated 05/11/18 @ 16:10 by Gisselle Marin) Other No pertinent family history - Tobacco History Second Hand Smoke Exposure: No Smoking Status: Former smoker - Alcohol History How Often Do You Have a Drink Containing Alcohol: Monthly or less - Substance Use History Substance History: No History of Abuse - Substance Use Type Other Comment: Patient denies past/presents substance use. Medications and Allergies Active Medications: Active Medications Hydrocodone Bitart/Acetaminophen ([place] 5/325) 1 tab PO Q6H PRN PRN Reason: PAIN SCALE 6 TO 10 Last Admin: 05/11/18 16:35 Dose: 1 tab Al Hydrox/Mg Hydrox/Simethicone (Mag-Al Plus Susp Liq) 30 ml PO Q6H PRN PRN Reason: DYSPEPSIA Al Hydroxide/Mg Hydroxide (Milk Of Magnesia Liq) 30 ml PO Q12H PRN PRN Reason: Mild Constipation Albuterol (Duoneb Neb (Prn)) 1 ampul NEB Q4HR NEB PRN PRN Reason: SOB/WHEEZING Last Admin: 05/11/18 02:27 Dose: 1 ampul Albuterol (Duoneb Neb ([facility])) 1 ampul NEB Q6HR WHILE AWAKE NEB [facility] Last Admin: 05/12/18 08:04 Dose: 1 ampul Bisacodyl (Dulcolax Supp) 10 mg RECTAL DAILY PRN PRN Reason: SEVERE CONSITIPATION Budesonide/Formoterol Fumarate (Symbicort 160/4.5 Mcg Inh) 2 puff INH BID [facility] Last Admin: 05/12/18 09:12 Dose: 2 puff Guaifenesin (Mucinex Er) 600 mg PO BID [facility] Last Admin: 05/12/18 09:12 Dose: 600 mg Lactulose (Lactulose Liq) 30 ml PO DAILY PRN PRN Reason: SEVERE CONSITIPATION Levofloxacin (Levaquin) 750 mg PO Q24H [facility] Last Admin: 05/11/18 21:26 Dose: 750 mg Levothyroxine Sodium (Synthroid) 50 mcg PO DAILY@0600 [facility] Last Admin: 05/12/18 05:30 Dose: 50 mcg Nebivolol (Bystolic) 20 mg PO DAILY [facility] Last Admin: 05/12/18 09:12 Dose: 20 mg Pantoprazole Sodium (Protonix) 40 mg PO DAILY [facility] Last Admin: 05/12/18 09:12 Dose: 40 mg Prednisone (Deltasone) 40 mg PO DAILY [facility] Last Admin: 05/12/18 09:13 Dose: 40 mg Senna/Docusate Sodium (Lyn-Colace) 1 tab PO BID [facility] Last Admin: 05/12/18 09:12 Dose: 1 tab Sennosides (Senokot) 17.2 mg PO Q12H PRN PRN Reason: Moderate Constipation Allergies Allergy/AdvReac Type Severity Reaction Status Date / Time penicillin G Allergy Severe Swelling Verified 05/08/18 21:32 Sulfa (Sulfonamide Allergy Severe Swelling Verified 05/08/18 21:32 Antibiotics) diphenhydramine Allergy Intermediate Swelling Verified 05/08/18 21:32 naproxen Allergy Intermediate Swelling Verified 05/08/18 21:32 verapamil Allergy Intermediate Swelling Verified 05/08/18 21:32 TAPE Allergy Intermediate Swelling Uncoded 05/08/18 21:32 *MDRO Multi-Drug Resistant AdvReac Unknown Swelling Uncoded 05/08/18 21:32 Organism Home Medications Medication Instructions Recorded Confirmed Type dexlansoprazole [Dexilant] 60 mg PO DAILY 05/08/18 05/08/18 History hydrocodone-acetaminophen 1 tab PO Q4-6H PRN 05/08/18 05/08/18 History levothyroxine 50 mcg PO DAILY 05/08/18 05/08/18 History meclizine 25 mg PO TID 05/08/18 05/08/18 History nebivolol [Bystolic] 20 mg PO DAILY 05/08/18 05/08/18 History diazepam [Valium] 5 mg TID PRN 05/09/18 05/09/18 History Exam Vital signs: Vital Signs 05/11/18 18:10 05/11/18 19:43 05/12/18 06:00 Temperature 98.6 F 99.6 F Pulse Rate 60 78 67 Respiratory Rate 20 17 18 Blood Pressure 162/65 H 161/69 H Pulse Oximetry 94 L 98 95 05/12/18 08:04 Temperature Pulse Rate 58 L Respiratory Rate 16 Blood Pressure Pulse Oximetry 95 Intake & Output 05/11/18 05/12/18 05/12/18 18:59 06:59 18:59 Intake Total 120 / 120 0 / 0 Balance 120 / 120 0 / 0 Intake: Oral 120 / 120 0 / 0 Oral Supplement 0 / 0 Other: # Voids 2 1 # Urine Diapers 2 Date of Last Bowel Movement 05/11/18 05/11/18 05/12/18 # Bowel Movements 1 0 Mental Status Examination Appearance: Disheveled Consciousness: Alert Orientation: Person Motor Activity: Other (No motor abnormalities noted. No signs of withdrawal noted.) Speech: Unremarkable Language: Other (Rambling) Fund of Knowledge: Inadequate Attention and Concentration: Easily distracted Memory: Impaired Mood: Anxious Affect: Blunt Thought Process & Associations: Tangential (In setting of dementia) Thought Content: Preoccupations Hallucination Type: None Delusion Type: None Suicidal Ideation: No Suicidal Plan: No Suicidal Intention: No Homicidal Ideation: No Homicidal Plan: No Homicidal Intention: No Insight: Poor Judgment: Poor Assessment and Plan - Assessment (1) Major neurocognitive disorder due to another medical condition with behavioral disturbance Code(s): F02.81 - Dementia in other diseases classified elsewhere with behavioral disturbance Status: Acute (2) COPD (chronic obstructive pulmonary disease) Code(s): J44.9 - Chronic obstructive pulmonary disease, unspecified Status: Acute - Plan Plan: I have seen and examined this patient, reviewed documentation, I agree and concur with Dr. Kerr assessment and plan. Justification for Continued Inpatient Stay: Continue admission per Request Healthcare Surrogate/Guardian Advocate?: Yes
--- NOTE | 2018-05-12 13:26 | CT ---
EXAM DATE: 05/12/2018 1:17 PM EST AGE/SEX: 78 years / Female INDICATIONS: Altered mental status. CLINICAL DATA: This is the patient's initial encounter. Patient reports that signs and symptoms have been present for 1 day and indicates a pain score of 0/10. MEDICAL/SURGICAL HISTORY: Chronic obstructive pulmonary disease. Hypertension. None. RADIATION DOSE: 56.35 CTDI (mGy) COMPARISON: No prior exams available for comparison. TECHNIQUE: CT of the head without contrast. Using automated exposure control and adjustment of the mA and/or kV according to patient size, radiation dose was kept as low as reasonably achievable to ob tain optimal diagnostic quality images. DICOM format image data is available electronically for revi ew and comparison. FINDINGS: Cerebrum: There is a subtle decrease in density of the basal ganglia on the left with obscuration of the internal capsule. No hemorrhage observed. Posterior Fossa: The cerebellum and brainstem are intact. The 4th ventricle is midline. The cerebe llopontine angle is unremarkable. Extracranial: The visualized portion of the orbits is intact. Skull: The calvaria is intact. No evidence of skull fracture. CONCLUSION: 1. 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 No hemorrhage observed. . Electronically signed by: Leonid Yu MD 05/12/2018 1:24 PM EST
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
--- NOTE | 2018-05-12 17:13 | MB ---
cc: Cristi Tanner MD, PhD DATE: 05/12/2018 REASON FOR CONSULTATION: Stroke. HISTORY OF PRESENT ILLNESS: Ms. Castro is a 78-year-old woman admitted to the psychiatry service on 05/11/2018 for alteration in mental status. As part of her evaluation CT brain was obtained, which revealed an area of low attenuation, left basal ganglia area consistent with possible left MCA infarction, possible acute or subacute. The patient denies any focal deficits, focal weakness, etc. She states she had a stroke many years ago. She does take an aspirin every day according to the patient. PAST MEDICAL HISTORY: There is a history of COPD, hypercholesterolemia, hypertension, hypothyroidism. CURRENT MEDICATIONS: 1. [place] as needed. 2. Magnesium hydroxide. 3. Milk of magnesia. 4. DuoNeb. 5. Symbicort. 6. Catapres. 7. Mucinex. 8. Lactulose 30 mg daily as needed. 9. Levaquin 750 mg daily. 10. Synthroid 50 mcg daily. 11. Protonix 40 mg daily. 12. Deltasone 40 mg daily. PHYSICAL EXAMINATION: VITAL SIGNS: Blood pressure is 159/70, pulse 73, respirations 18, temperature 98 degrees. NEUROLOGIC: Higher cortical function: She is alert, oriented, who follows commands. Speech is normal. Cranial nerves intact. Motor exam: No focal deficits identified. She has got 5/5 strength in all groups. ____ normal. Reflexes are 2+ and symmetric. IMAGING STUDIES: CT of the brain possible lower attenuation and left basal ganglia. LABORATORY DATA: The white count is 7500, hemoglobin 11.7, hematocrit 35.3%, platelet count 214,000. PT 11.3, INR 1.1, aPTT 26.9. Sodium is 145, potassium 3.5, chloride 107, CO2 30, BUN is 15, creatinine 0.87, GFR 63, glucose 150. AST 45, ALT is 25, LDL 87, cholesterol 167, HDL 46.8. B12 450. IMPRESSION: Possible left middle cerebral artery stroke based on CT scan. PLAN: Recommend MRI of the brain to further evaluate whether or not this is an acute stroke. Also, carotid ultrasound and echocardiogram. Continue aspirin 81 mg daily. Cristi Tanner MD, PhD AN/[email or web address]/michelle , 04:01 PM , 04:07 PM
[2018-05-12] MEDS: levoFLOXacin 750 MG Tablet PO SCH (17:20)
--- NOTE | 2018-05-12 19:03 | XR ---
EXAM DATE: 05/12/2018 6:46 PM EST AGE/SEX: 78 years / Female INDICATIONS: Evaluate for foreign body. MRI clearance with no obtainable history. CLINICAL DATA: This is the patient's initial encounter. Patient reports that signs and symptoms have been present for 1 day and indicates a pain score of Nonresponsive. MEDICAL/SURGICAL HISTORY: None. Kyphoplasty. COMPARISON: No prior exams available for comparison. FINDINGS: Patient has had cholecystectomy and L1 vertebroplasty. No other radiopaque objects are demonstrated. Bowel gas pattern is nonobstructive. No free air. CONCLUSION: Benign-appearing abdomen. No contraindications are seen to MRI. Electronically signed by: Stevo Naik MD 05/12/2018 7:02 PM EST
--- NOTE | 2018-05-12 19:51 | MR ---
EXAM DATE: 05/12/2018 7:43 PM EST AGE/SEX: 78 years / Female INDICATIONS: Altered mental status and cephalgia. CVA. Abnormal head CT was subtle decreased densi ty in the left basal ganglia with obscuration of internal capsule and possible middle cerebral artery territory infarct. CLINICAL DATA: This is the patient's initial encounter. Patient reports that signs and symptoms have been present for 1 day and indicates a pain score of 5/10. MEDICAL/SURGICAL HISTORY: Hypertension. Hypothyroidism. Cholecystectomy. Back sx. COMPARISON: [facility] [place], CT HEAD W/O CONTRAST, 05/12/2018. . TECHNIQUE: Multiplanar, multisequence examination of the brain was performed without and with 10 ml G adavist (gadobutrol) contrast as a single exam dose. FINDINGS: Cerebrum: The ventricles are normal for age with mild atrophic change. No evidence of midline shift, mass lesion, hemorrhage or acute infarction. No extraaxial fluid collections are seen. The pituita ry gland and suprasellar cistern are normal in configuration. White Matter: On the FLAIR weighted images there is increased signal in the centrum semiovale and pe riventricular white matter characteristic of chronic small vessel change. Posterior Fossa: The cerebellum and brainstem are intact. The 4th ventricle is midline. The cerebel lopontine angle is unremarkable. The cerebellar tonsils are normal in position. Diffusion Imaging: No focal areas of restricted diffusion are seen. No evidence of acute infarction . Extracranial: The visualized portions of the orbits and paranasal sinuses are unremarkable. Post Contrast: No abnormal areas of parenchymal or dural enhancement. No evidence of blood-brain ba rrier breakdown. CONCLUSION: 1. No acute hemorrhage, mass or evidence of infarction. 2. Mild age-appropriate atrophic change. 3. Chronic small vessel ischemic changes. Electronically signed by: Teddy Faith MD 05/12/2018 7:49 PM EST
[2018-05-12] MEDS ORDERED: Gadobutrol PF 10 MMOL/10 ML Vial (for RAD) IV.SIG ONE (19:56)
--- NOTE | 2018-05-12 20:07 | MR ---
EXAM DATE: 05/12/2018 8:03 PM EST AGE/SEX: 78 years / Female INDICATIONS: CVA. Headache, Nausea CLINICAL DATA: This is the patient's initial encounter. Patient reports that signs and symptoms have been present for 2 days and indicates a pain score of 0/10. MEDICAL/SURGICAL HISTORY: . HTN, COPD, HLD, Hypothyroidism Cholecystectomy. Back sx, OOpherect tona COMPARISON: [facility] [place], MR HEAD W & W/O CONTRAST, 05/12/2018. . TECHNIQUE: 3D [id number] MRA was performed. Source images, multiplanar STS MIP, and 3D volum e MIP reconstructions were reviewed. FINDINGS: There is excellent visualization of the major intracranial arteries out to the second-order branch ve ssels. There is no evidence for aneurysm, vessel truncation or stenosis, and no evidence for vascula r malformation. Anatomic variant small left A1 segment and prominent left posterior communicating not ed. CONCLUSION: No acute abnormality of the intracranial arteries. Electronically signed by: Stevo Naik MD 05/12/2018 8:05 PM EST
--- NOTE | 2018-05-12 21:13 | MR ---
EXAM DATE: 05/12/2018 8:14 PM EST AGE/SEX: 78 years / Female INDICATIONS: Altered mental status. CVA. CLINICAL DATA: This is the patient's initial encounter. Patient reports that signs and symptoms have been present for 1 day and indicates a pain score of 5/10. MEDICAL/SURGICAL HISTORY: Hypertension. Hypothyroidism. Cholecystectomy. Back sx. COMPARISON: No prior exams available for comparison. TECHNIQUE: 10 ml Gadavist (gadobutrol) contrast infused MRA (single exam dose) of the extracranial circulation was performed using a neurovascular coil. Postprocessing was performed, including rotati ng sub-volume maximum intensity projections of each carotid artery, rotating full-volume maximum inte nsity projections of both carotid arteries, sagittal and coronal sliding thin-slab reformations of ea ch carotid artery, and left oblique sliding thin-slab reformation through the aortic arch to include the origin of the arch branch vessels. FINDINGS: Aortic Arch : There is a three-vessel origin of the great vessels from the aorta. No evidence of o stial narrowing. Right Carotid : The common carotid artery is intact. The carotid bulb has a normal configuration wi thout ulceration or narrowing. The internal carotid artery lumen is smooth without stenosis. The ex ternal carotid artery is intact. Left Carotid : The common carotid artery is intact. The carotid bulb has a normal configuration wit hout ulceration or narrowing. The internal carotid artery lumen is smooth without stenosis. The ext ernal carotid artery is intact. Vertebrals : The vertebral arteries have a symmetric diameter. No stenotic lesions are seen. CONCLUSION: 1. Unremarkable exam. Percent stenosis is calculated using the diameter of the stenotic region over the diameter of the nor mal distal internal carotid artery Electronically signed by: Teddy Faith MD 05/12/2018 9:12 PM EST
[2018-05-13] MEDS: Levothyroxine 50 MCG Tablet PO SCH (05:57)
[2018-05-13] MEDS: Budesonide-Formoterol 160/4.5 MCG 6 GM Inhaler INH SCH ×2 (08:15→20:22)
[2018-05-13] MEDS: guaiFENesin 600 MG ER Tablet PO SCH ×2 (08:16→20:22)
[2018-05-13] MEDS: Senna/Docusate Sodium 8.6/50 MG Tablet PO SCH ×2 (08:16→20:22)
[2018-05-13] MEDS: predniSONE 20 MG Tablet PO SCH (08:17)
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
--- NOTE | 2018-05-13 09:16 | P.PNNEU ---
Subjective Subjective Comments: no new neurologic sx.Pt denies focal weakness or numbness Active Medications: Active Medications Acetaminophen (Tylenol) 500 mg PO Q6H PRN PRN Reason: pain1-5/ headache/ temp >100.1 Hydrocodone Bitart/Acetaminophen ([place] 5/325) 1 tab PO Q6H PRN PRN Reason: PAIN SCALE 6 TO 10 Last Admin: 05/13/18 05:57 Dose: 1 tab Al Hydrox/Mg Hydrox/Simethicone (Mag-Al Plus Susp Liq) 30 ml PO Q6H PRN PRN Reason: DYSPEPSIA Last Admin: 05/12/18 13:47 Dose: 30 ml Al Hydroxide/Mg Hydroxide (Milk Of Magnesia Liq) 30 ml PO Q12H PRN PRN Reason: Mild Constipation Albuterol (Duoneb Neb (Prn)) 1 ampul NEB Q4HR NEB PRN PRN Reason: SOB/WHEEZING Last Admin: 05/11/18 02:27 Dose: 1 ampul Albuterol (Duoneb Neb ([facility])) 1 ampul NEB Q6HR WHILE AWAKE NEB [facility] Last Admin: 05/13/18 08:11 Dose: Not Given Aspirin (Ecotrin) 81 mg PO DAILY [facility] Last Admin: 05/13/18 08:16 Dose: 81 mg Bisacodyl (Dulcolax Supp) 10 mg RECTAL DAILY PRN PRN Reason: SEVERE CONSITIPATION Budesonide/Formoterol Fumarate (Symbicort 160/4.5 Mcg Inh) 2 puff INH BID [facility] Last Admin: 05/13/18 08:15 Dose: 2 puff Clonidine HCl (Catapres) 0.1 mg PO Q6H PRN PRN Reason: SBP>160, DBP>90 Last Admin: 05/13/18 05:57 Dose: 0.1 mg Guaifenesin (Mucinex Er) 600 mg PO BID [facility] Last Admin: 05/13/18 08:16 Dose: 600 mg Lactulose (Lactulose Liq) 30 ml PO DAILY PRN PRN Reason: SEVERE CONSITIPATION Levofloxacin (Levaquin) 750 mg PO Q24H [facility] Last Admin: 05/12/18 17:20 Dose: 750 mg Levothyroxine Sodium (Synthroid) 50 mcg PO DAILY@0600 [facility] Last Admin: 05/13/18 05:57 Dose: 50 mcg Nebivolol (Bystolic) 20 mg PO DAILY [facility] Last Admin: 05/13/18 08:16 Dose: 20 mg Pantoprazole Sodium (Protonix) 40 mg PO DAILY [facility] Last Admin: 05/13/18 08:16 Dose: 40 mg Prednisone (Deltasone) 40 mg PO DAILY [facility] Last Admin: 05/13/18 08:17 Dose: 40 mg Senna/Docusate Sodium (Lyn-Colace) 1 tab PO BID [facility] Last Admin: 05/13/18 08:16 Dose: 1 tab Sennosides (Senokot) 17.2 mg PO Q12H PRN PRN Reason: Moderate Constipation Allergies/Adverse Reactions: Allergies Allergy/AdvReac Type Severity Reaction Status Date / Time penicillin G Allergy Severe Swelling Verified 05/08/18 21:32 Sulfa (Sulfonamide Allergy Severe Swelling Verified 05/08/18 21:32 Antibiotics) diphenhydramine Allergy Intermediate Swelling Verified 05/08/18 21:32 naproxen Allergy Intermediate Swelling Verified 05/08/18 21:32 verapamil Allergy Intermediate Swelling Verified 05/08/18 21:32 TAPE Allergy Intermediate Swelling Uncoded 05/08/18 21:32 *MDRO Multi-Drug Resistant AdvReac Unknown Swelling Uncoded 05/08/18 21:32 Organism Physical Exam Vital signs: Vital Signs 05/12/18 14:32 05/12/18 15:35 05/12/18 17:56 Temperature 98.6 F 98.2 F Pulse Rate 61 73 70 Respiratory Rate 16 18 18 Blood Pressure 159/70 H 166/70 H Pulse Oximetry 94 L 94 L 05/12/18 21:01 05/13/18 06:21 05/13/18 08:58 Temperature 98.5 F Pulse Rate 64 76 Respiratory Rate 14 16 16 Blood Pressure 182/75 H Pulse Oximetry 99 93 L Intake & Output 05/12/18 05/13/18 05/13/18 18:59 06:59 18:59 Intake Total 0 / 0 180 / 180 Balance 0 / 0 180 / 180 Intake: Oral 0 / 0 180 / 180 Other: # Voids 2 # Urine Diapers 1 Date of Last Bowel Movement 05/12/18 05/12/18 # Bowel Movements 1 - Routine Neurological Exam alert, oriented times 3, speech normal, follow commands CN intact MOTOR 5/5 BUE and BLE, no pronator drift Objective Radiology Results: MRI brain--normal with no evidence for acute stroke MRA brain normal MRA neck normal carotids Laboratory Results - last 24 hr 05/11/18 05/12/18 14:28 08:39 Sodium 145 Potassium 3.5 Chloride 107 Carbon Dioxide 30.1 Anion Gap 8 BUN 15 Creatinine 0.87 Estimated GFR 63 L Random Glucose 150 H Calcium 9.3 RPR Nonreactive Review/Management - Review/Management Plan: No evidence for stroke on MRI. CT findings most likely artifact
--- NOTE | 2018-05-13 10:55 | P.PNPSY ---
Subjective Chief Complaint: Nick Act Remarks: Patient seen and examined with nurse on medical psychiatric unit. Chart reviewed. Case discussed with nursing staff. No behavioral issues noted overnight. Patient remains confused per nursing and believes she is here (in the hospital) to . On my examination today, patient is in good spirits. She engages in some joking banter with this provider and tells the RN that she thinks Brayan Richards is good looking. We discuss her belief that she is dying, and patient says this stems from having allegedly being told this by a clinician at initial presentation. Very much unclear if this has any basis in reality. Belief does not appear to be distressing for patient. No other potential delusional material. Denies SI. No physical complaints. Vital Signs Temp Pulse Resp BP Pulse Ox 05/13/18 08:58 16 05/13/18 06:21 98.5 F 76 16 182/75 H 93 L 05/12/18 21:01 64 14 99 05/12/18 17:56 98.2 F 70 18 166/70 H 94 L 05/12/18 15:35 98.6 F 73 18 159/70 H 94 L 05/12/18 14:32 61 16 Intake and Output 05/12/18 05/13/18 05/13/18 22:59 06:59 14:59 Intake Total 60 / 60 120 / 120 120 / 120 Balance 60 / 60 120 / 120 120 / 120 Intake: Oral 60 / 60 120 / 120 120 / 120 Other: # Voids 2 # Urine Diapers 1 Date of Last Bowel Movement 05/12/18 # Bowel Movements 1 Labs reviewed. Impressions Abdomen X-Ray 05/12/18 00:00 CONCLUSION: Benign-appearing abdomen. No contraindications are seen to MRI. Head CT 05/12/18 00:00 CONCLUSION: 1. 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 No hemorrhage observed. . Head MRI 05/12/18 00:00 CONCLUSION: 1. No acute hemorrhage, mass or evidence of infarction. 2. Mild age-appropriate atrophic change. 3. Chronic small vessel ischemic changes. Head MRA 05/12/18 00:00 CONCLUSION: No acute abnormality of the intracranial arteries. Neck MRA 05/12/18 00:00 CONCLUSION: 1. Unremarkable exam. Percent stenosis is calculated using the diameter of the stenotic region over the diameter of the normal distal internal carotid artery Review of Systems All other systems reviewed negative except as stated in HPI (Poor historian) Mental Status Examination Appearance: Disheveled Consciousness: Alert Orientation: Person Motor Activity: Other (No motoric abnormalities noted) Speech: Unremarkable Language: Other (Rambling) Fund of Knowledge: Inadequate Attention and Concentration: Easily distracted Memory: Impaired Mood: Appropriate Affect: Appropriate, Euthymic Thought Process & Associations: Circumstantial Thought Content: Preoccupations Hallucination Type: None Delusion Type: Other (No jana delusions but see above) Suicidal Ideation: No Suicidal Plan: No Suicidal Intention: No Homicidal Ideation: No Insight: Poor Judgment: Poor Assessment and Plan - Assessment (1) Major neurocognitive disorder due to another medical condition with behavioral disturbance Code(s): F02.81 - Dementia in other diseases classified elsewhere with behavioral disturbance Status: Acute (2) COPD (chronic obstructive pulmonary disease) Code(s): J44.9 - Chronic obstructive pulmonary disease, unspecified Status: Acute - Plan Plan: Could consider antipsychotic initiation as noted previously, but in the absence of distressing or impairing psychosis or behavioral disturbance in the setting of neurocognitive disorder, it would not seem that risk-benefit profile would favor initiation. Hospitalist and neurology input noted and appreciated. No evidence of CVA. PT input appreciated; PT recommending PT at rehab. Continue to monitor on the medical psychiatric unit. Continue other medications and care as ordered. Justification for Continued Inpatient Stay: Risk for decompensation and less restrictive environment. Discharge Planning: Probable discharge to rehab. Request Healthcare Surrogate/Guardian Advocate?: Yes
--- NOTE | 2018-05-13 15:24 | ECHRPT ---
Indication: CVA/TIA CONCLUSIONS Normal left ventricular size. Mild concentric left ventricular hypertrophy. The left ventricular systolic function is hyperdynamic with an estimated ejection fraction in the ra nge of 65- 70%. Trace mitral valve regurgitation. There is trace tricuspid valve regurgitation. The estimated pulmonary arterial pressure is 32.7 mmHg. A prominent epicardial fat pad is present vs small anterior pericardial effusion without evidence o f tamponade. BP: / HR: Rhythm: Sinus MEASUREMENTS (Male / Female) Normal Values Technical Quality:Fair 2D ECHO LV Diastolic Diameter PLAX 4.1 cm 4.2 - 5.9 / 3.9 - 5.3 cm LV Systolic Diameter PLAX 2.7 cm IVS Diastolic Thickness 1.1 cm 0.6 - 1.0 / 0.6 - 0.9 cm LVPW Diastolic Thickness 1.1 cm 0.6 - 1.0 / 0.6 - 0.9 cm LV Relative Wall Thickness 0.5 RV Internal Dim ED PLAX 2.3 cm LVOT Diameter 1.7 cm Aortic Root Diameter 2.7 cm LA Systolic Diameter LX 3.0 cm 3.0 - 4.0 / 2.7 - 3.8 cm M-MODE AV Cusp Separation MM 1.7 cm DOPPLER AV Peak Velocity 143.0 cm/s AV Peak Gradient 8.2 mmHg AV Mean Gradient 4.0 mmHg AV Velocity Time Integral 30.5 cm LVOT Peak Velocity 106.0 cm/s LVOT Peak Gradient 4.5 mmHg LVOT Velocity Time Integral 21.1 cm AV Area Cont Eq vti 1.6 cm AV Area Cont Eq pk 1.7 cm Mitral E Point Velocity 86.4 cm/s Mitral A Point Velocity 75.0 cm/s Mitral E to A Ratio 1.2 LV E' Lateral Velocity 4.7 cm/s Mitral E to LV E' Lateral Ratio 18.5 LV E' Septal Velocity 6.3 cm/s Mitral E to LV E' Septal Ratio 13.6 TR Peak Velocity 238.0 cm/s TR Peak Gradient 22.7 mmHg Right Atrial Pressure 10.0 mmHg Pulmonary Artery Systolic Pressu 32.7 mmHg Right Ventricular Systolic Press 32.7 mmHg PV Peak Velocity 76.7 cm/s PV Peak Gradient 2.4 mmHg FINDINGS LEFT VENTRICLE Normal left ventricular size. Mild concentric left ventricular hypertrophy. The left ventricular systolic function is hyperdynamic with an estimated ejection fraction in the ra nge of 65- 70%. RIGHT VENTRICLE Normal right ventricular size and systolic function. LEFT ATRIUM The left atrial size is normal. RIGHT ATRIUM The right atrial size is normal. ATRIAL SEPTUM The interatrial septum not well visualized. AORTA The aortic root and proximal ascending aorta are not well visualized. MITRAL VALVE Trace mitral valve regurgitation. AORTIC VALVE Trileaflet aortic valve. No aortic valve stenosis or regurgitation. TRICUSPID VALVE There is trace tricuspid valve regurgitation. The estimated pulmonary arterial pressure is 32.7 mmHg. PULMONARY VALVE The pulmonary valve is not well visualized. VESSELS The inferior vena cava was not well visualized. PERICARDIUM A prominent epicardial fat pad is present vs small anterior pericardial effusion without evidence o f tamponade. Brett Goodwin MD (Electronically Signed) Final Date:13 May 2018 15:23
[2018-05-13] MEDS: levoFLOXacin 750 MG Tablet PO SCH (17:00)
[2018-05-14] MEDS: Levothyroxine 50 MCG Tablet PO SCH (05:18)
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
--- NOTE | 2018-05-14 09:32 | P.TTN ---
- Patient Problems Problems: 1. Discharge planning 2. Medication compliance 3. Knowledge deficit 4. Lack of coping skills - Progress Toward Goals Provider Present: Dr. Elizabeth Kerr Provider Input: 05/14/2018 Patient has not been seen by psychiatirst yet. Still had altered mental status as of yesterday regarding dying. 05/11/18: Pt has not been seen by this MD as yet, scheduled assessment today. Nurse Input: 05/14/2018 Patient has been vomiting and complaining of nausea. An IV Zofran was been ordered. Psychiatric Counselors Present: Other Group Spec/RT/OT/LAUREANO Input: 05/14/2018 Patient stated that she was ok with dying. Questioned why she thought that and said someone told her upon admission. 05/11/18: New pt; no hx yet - Discharge Plan Other ([facility] rehab or another facility in [place].) 05/11/18: Pt was living at [facility], anticipated to return when stable and when facility can re-accept. - Documentation Teaching Recipient: Patient
[2018-05-14 10:29] LABS: Calcium 8.7 mg/dL (8.5-10.1); Carbon Dioxide 29.9 meq/L (21.0-32.0); Potassium 3.1 meq/L (3.5-5.1)
[2018-05-14] MEDS: guaiFENesin 600 MG ER Tablet PO SCH ×3 (10:42→20:32)
[2018-05-14] MEDS: Senna/Docusate Sodium 8.6/50 MG Tablet PO SCH ×2 (10:43→20:34)
[2018-05-14] MEDS: Budesonide-Formoterol 160/4.5 MCG 6 GM Inhaler INH SCH ×2 (10:45→20:32)
--- NOTE | 2018-05-14 12:34 | P.PNPSY ---
Subjective Chief Complaint: Nick Act Remarks: Patient seen and examined. Chart reviewed. Case discussed with nursing staff who reports that patient was nauseated overnight and had an episode of emesis. She refused her medications this morning secondary to nausea. Hospitalist is managing this issue. Case discussed with treatment team. Once stabilized, the patient has a rehabilitation bed. On my examination today, the patient presents as somewhat fretful and paranoid. She believes that some members of the staff, it is not clear who, are trying to kill her. She denies SI/HI. Denies AVH. Continues to complain of some nausea. No other physical complaints. Spoke with patient's cousin, Mr. Kovacs. He provides consent for Zyprexa to help manage psychiatric symptoms. Vital Signs Temp Pulse Resp BP Pulse Ox 05/14/18 14:32 75 16 05/14/18 09:03 62 18 96 05/14/18 06:08 97.4 F L 70 16 136/62 92 L 05/13/18 22:03 95 05/13/18 17:59 98.1 F 74 17 154/66 H 92 L Intake and Output 05/13/18 05/14/18 05/14/18 22:59 06:59 14:59 Intake Total 360 / 360 360 / 360 Balance 360 / 360 360 / 360 Intake: Oral 360 / 360 360 / 360 Other: # Voids 1 # Urine Diapers 4 # Bowel Movements 1 Laboratory Results - last 24 hr 05/11/18 05/14/18 14:28 09:03 Sodium 144 Potassium 3.1 L Chloride 106 Carbon Dioxide 29.9 Anion Gap 8 BUN 13 Creatinine 0.81 Estimated GFR 69 L Random Glucose 94 Calcium 8.7 Thiamine 154 Labs reviewed. Hypokalemia noted. I have ordered repletion. Review of Systems All other systems reviewed negative except as stated in HPI (Limitation: Poor historian) Mental Status Examination Appearance: Disheveled Consciousness: Alert Orientation: Person Motor Activity: Other (No abnormal motor movements noted) Speech: Unremarkable Language: Other (Rambling) Fund of Knowledge: Inadequate Attention and Concentration: Easily distracted Memory: Impaired Mood: Anxious Affect: Anxious, Other (dysphoric) Thought Process & Associations: Circumstantial Thought Content: Preoccupations Hallucination Type: None Delusion Type: Paranoid Suicidal Ideation: No Homicidal Ideation: No Insight: Poor Judgment: Poor Assessment and Plan - Assessment (1) Major neurocognitive disorder due to another medical condition with behavioral disturbance Code(s): F02.81 - Dementia in other diseases classified elsewhere with behavioral disturbance Status: Acute (2) COPD (chronic obstructive pulmonary disease) Code(s): J44.9 - Chronic obstructive pulmonary disease, unspecified Status: Acute - Plan Plan: Patient seems more distressed today from the psychotic material associated with her cognitive impairment, and I do believe at this juncture antipsychotic therapy is indicated. Start Zyprexa 2.5mg qHS. Consent obtained from cousin/ HCS. Hospitalist input noted and appreciated. Continue to monitor on medical psychiatric unit. Continue other medications and care as ordered. Justification for Continued Inpatient Stay: Medication changes. Complicating condition. High risk for decompensation and less restrictive environment. Discharge Planning: Pending stabilization. Request Healthcare Surrogate/Guardian Advocate?: Yes
[2018-05-14] MEDS ORDERED: Potassium Chloride 25 MEQ Effervescent Tablet PO ONE (14:30)
[2018-05-14] MEDS: levoFLOXacin 750 MG Tablet PO SCH (16:42)
[2018-05-14] MEDS: OLANZapine 2.5 MG Tablet PO SCH (20:33)
[2018-05-14] MEDS ORDERED: metroNIDAZOLE 500 MG Tablet PO SCH (23:53)
[2018-05-15] MEDS: Levothyroxine 50 MCG Tablet PO SCH (07:13)
[2018-05-15 08:27] LABS: Carbon Dioxide 30.5 meq/L (21.0-32.0)
[2018-05-15 08:28] LABS: Calcium 8.4 mg/dL (8.5-10.1); Magnesium 1.7 mg/dL (1.5-2.5)
[2018-05-15 08:33] LABS: Potassium 2.9 meq/L (3.5-5.1)
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
--- NOTE | 2018-05-15 12:06 | P.PNPSY ---
Subjective Chief Complaint: Nick Act Remarks: Patient seen and examined with nurse. Chart reviewed. C. difficile PCR positive. Patient refused Zyprexa overnight. Case discussed with nursing staff. Patient is more medication adherent today but wants to take medication spread out over a longer period due to nausea, and the nurses accommodating the patient in this request. On my examination today, the patient says that she is feeling stronger. She very much likes her nurse today. No paranoia or delusional material verbalized. Some ongoing nausea but no other acute physical complaints. Vital Signs Temp Pulse Resp BP Pulse Ox 05/15/18 08:19 80 16 94 L 05/15/18 05:23 98.7 F 80 19 161/85 H 94 L 05/14/18 19:40 74 18 96 05/14/18 18:01 98.5 F 76 16 160/68 H 95 05/14/18 14:32 75 16 Intake and Output 05/14/18 05/15/18 05/15/18 22:59 06:59 14:59 Intake Total 120 / 120 0 / 0 Balance 120 / 120 0 / 0 Intake: Oral 120 / 120 0 / 0 Other: # Voids 2 Date of Last Bowel Movement 05/14/18 # Bowel Movements 2 Weight 83.007 kg Weight On Admission 83.007 kg Laboratory Results - last 24 hr 05/14/18 05/15/18 20:00 06:53 Sodium 146 H Potassium 2.9 L* Chloride 106 Carbon Dioxide 30.5 Anion Gap 10 BUN 10 Creatinine 0.75 Estimated GFR 75 L Random Glucose 93 Calcium 8.4 L Magnesium 1.7 Stool C.difficile Ag Positive H Stool C.difficile Toxin Negative Stl C.difficile DNA Amp Positive H St C. diff Tox Epid 027 Positive H Labs reviewed. Hypokalemia noted. Hospitalist plans to replete IV. Review of Systems All other systems reviewed negative except as stated in HPI (Limitation: Poor historian) Mental Status Examination Appearance: Disheveled Consciousness: Alert Orientation: Person Motor Activity: Other (No abnormal motor movements noted) Speech: Unremarkable Language: Other (Rambling) Fund of Knowledge: Inadequate Attention and Concentration: Easily distracted Memory: Impaired Mood: Other (Calm) Affect: Blunt Thought Process & Associations: Circumstantial Thought Content: Preoccupations Hallucination Type: None Delusion Type: None Suicidal Ideation: No Suicidal Plan: No Suicidal Intention: No Homicidal Ideation: No Homicidal Plan: No Homicidal Intention: No Insight: Poor Judgment: Poor Assessment and Plan - Assessment (1) Major neurocognitive disorder due to another medical condition with behavioral disturbance Code(s): F02.81 - Dementia in other diseases classified elsewhere with behavioral disturbance Status: Acute (2) COPD (chronic obstructive pulmonary disease) Code(s): J44.9 - Chronic obstructive pulmonary disease, unspecified Status: Acute - Plan Plan: Offered Zyprexa again this evening. Hospitalist input noted and appreciated. Continue to monitor on the inpatient unit. Continue other medications and care as ordered. Justification for Continued Inpatient Stay: Complicating conditions. High risk for decompensation and less restrictive environment. Discharge Planning: Pending stabilization and resolution of acute medical issues. Request Healthcare Surrogate/Guardian Advocate?: Yes
[2018-05-15] MEDS: guaiFENesin 600 MG ER Tablet PO SCH ×2 (13:51→20:18)
[2018-05-15] MEDS: predniSONE 20 MG Tablet PO SCH (13:51)
[2018-05-15] MEDS: Budesonide-Formoterol 160/4.5 MCG 6 GM Inhaler INH SCH ×2 (13:52→20:18)
[2018-05-15] MEDS: Polymyxin/Trimethop Opth Drops 10 ML Bottle EACH EYE SCH ×3 (14:42→20:18)
[2018-05-15] MEDS: levoFLOXacin 750 MG Tablet PO SCH (18:33)
[2018-05-15] MEDS: OLANZapine 2.5 MG Tablet PO SCH (20:18)
[2018-05-16] MEDS: Polymyxin/Trimethop Opth Drops 10 ML Bottle EACH EYE SCH ×5 (05:22→20:42)
[2018-05-16] MEDS: Levothyroxine 50 MCG Tablet PO SCH (05:25)
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
[2018-05-16] MEDS: predniSONE 20 MG Tablet PO SCH ×2 (12:18→12:45)
[2018-05-16] MEDS: guaiFENesin 600 MG ER Tablet PO SCH ×3 (12:19→20:42)
[2018-05-16] MEDS: Budesonide-Formoterol 160/4.5 MCG 6 GM Inhaler INH SCH ×2 (12:20→20:42)
[2018-05-16] MEDS: Potassium Bicarbonate 25 MEQ Effervescent Tablet PO SCH ×2 (12:21→14:14)
--- NOTE | 2018-05-16 12:40 | P.PNPSY ---
Subjective Chief Complaint: Nick Act Remarks: Patient seen and examined with nurse. Chart reviewed. Case discussed with nursing staff. On my examination today, the patient is fairly sedated. Nursing indicates that patient does have periods of sedation even before initiation of Zyprexa and she was reportedly more alert earlier in the day. Psychiatric interview limited today because of sedation. No evidence of physical distress. Vital Signs Temp Pulse Resp BP Pulse Ox 05/15/18 21:24 95 05/15/18 19:20 98.4 F 70 16 118/62 99 05/15/18 16:16 67 16 Intake and Output 05/15/18 05/16/18 05/16/18 22:59 06:59 14:59 Intake Total 665 / 665 120 / 120 Balance 665 / 665 120 / 120 Intake: Oral 665 / 665 120 / 120 Other: # Urine Diapers 4 Date of Last Bowel Movement 05/15/18 Labs reviewed. BMP ordered for this morning has not yet resulted. Review of Systems unobtainable due to mental status Mental Status Examination Appearance: Disheveled Consciousness: Asleep Affect: Flat Insight: Poor Judgment: Poor Mental Status Exam Remarks: Mental status exam limited because of sedation Assessment and Plan - Assessment (1) Major neurocognitive disorder due to another medical condition with behavioral disturbance Code(s): F02.81 - Dementia in other diseases classified elsewhere with behavioral disturbance Status: Acute (2) COPD (chronic obstructive pulmonary disease) Code(s): J44.9 - Chronic obstructive pulmonary disease, unspecified Status: Acute - Plan Plan: Cut Zyprexa dose in half to 1.25 mg at bedtime. Follow-up BMP. Continue to monitor on the medical psychiatric unit. Hospitalist input appreciated. Continue other medications and care as ordered. Justification for Continued Inpatient Stay: Risk for decompensation and less restrictive environment. Complicating conditions. Discharge Planning: Rehabilitation placement once stabilized. Request Healthcare Surrogate/Guardian Advocate?: Yes
[2018-05-16] MEDS: levoFLOXacin 750 MG Tablet PO SCH (16:44)
[2018-05-16] MEDS: OLANZapine 2.5 MG Tablet PO SCH (20:42)
[2018-05-17] MEDS: Polymyxin/Trimethop Opth Drops 10 ML Bottle EACH EYE SCH ×4 (03:34→20:45)
[2018-05-17] MEDS: Levothyroxine 50 MCG Tablet PO SCH (06:04)
[2018-05-17 07:05] LABS: Calcium 8.4 mg/dL (8.5-10.1); Carbon Dioxide 30.3 meq/L (21.0-32.0)
[2018-05-17] MEDS: predniSONE 20 MG Tablet PO SCH (08:26)
[2018-05-17] MEDS: guaiFENesin 600 MG ER Tablet PO SCH ×2 (08:26→20:44)
[2018-05-17] MEDS: Potassium Bicarbonate 25 MEQ Effervescent Tablet PO SCH (08:28)
[2018-05-17] MEDS: Budesonide-Formoterol 160/4.5 MCG 6 GM Inhaler INH SCH ×2 (08:36→20:45)
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
--- NOTE | 2018-05-17 11:53 | P.PNPSY ---
Subjective Chief Complaint: Nick Act Remarks: Patient seen and examined. Chart reviewed. Case discussed with staff. No reported issues overnight. On my examination today, patient remains confused as at recent baseline. She is more alert today. Denies hallucinations. No other psychotic material. She reports that she was able to eat some more today. No reported side effects from medications. No acute physical complaints. Vital Signs Temp Pulse Resp BP Pulse Ox 05/17/18 08:23 63 16 97 05/17/18 06:00 97.4 F L 58 L 16 161/71 H 97 05/16/18 18:26 97.7 F 64 18 153/70 H 94 L 05/16/18 16:02 94 L Intake and Output 05/16/18 05/17/18 05/17/18 22:59 06:59 14:59 Intake Total 700 / 700 480 / 480 Balance 700 / 700 480 / 480 Intake: Oral 600 / 600 480 / 480 Oral Supplement 100 / 100 Other: # Voids 2 Date of Last Bowel Movement 05/15/18 Weight 74.7 kg Laboratory Results - last 24 hr 05/17/18 06:05 Sodium 146 H Potassium 3.0 L Chloride 109 H Carbon Dioxide 30.3 Anion Gap 7 BUN 10 Creatinine 0.72 Estimated GFR 79 L Random Glucose 92 Calcium 8.4 L Labs reviewed. Ongoing hypokalemia, and a note patient has been placed on scheduled daily potassium supplement by the hospitalist. GFR stable. Review of Systems All other systems reviewed negative except as stated in HPI (Limitation: Poor historian) Mental Status Examination Appearance: Disheveled Consciousness: Alert Orientation: Person Motor Activity: Other (No motoric abnormalities noted) Speech: Unremarkable Language: Other (Rambling) Fund of Knowledge: Inadequate Attention and Concentration: Easily distracted Memory: Impaired Mood: Other (Calm) Affect: Flat Thought Process & Associations: Other (Slowed) Thought Content: Other (Poverty of thought) Hallucination Type: None Delusion Type: None Suicidal Ideation: No Homicidal Ideation: No Insight: Poor Judgment: Poor Assessment and Plan - Assessment (1) Major neurocognitive disorder due to another medical condition with behavioral disturbance Code(s): F02.81 - Dementia in other diseases classified elsewhere with behavioral disturbance Status: Acute (2) COPD (chronic obstructive pulmonary disease) Code(s): J44.9 - Chronic obstructive pulmonary disease, unspecified Status: Acute - Plan Plan: Continue Zyprexa 1.25 mg at bedtime as ordered. Hospitalist input noted and appreciated. Patient continues to convalesce from C. difficile infection. Will ask PT to mobilize pt. Continue other medications and care as ordered. Justification for Continued Inpatient Stay: Complicating conditions. High risk for decompensation and less restrictive environment. Discharge Planning: Plan for discharge to rehab once medical condition stabilized. Request Healthcare Surrogate/Guardian Advocate?: Yes
--- NOTE | 2018-05-17 12:21 | P.TTN ---
- Patient Problems Problems: 1. Discharge planning 2. Medication compliance 3. Knowledge deficit 4. Lack of coping skills - Progress Toward Goals Provider Present: Dr. Elizabeth Kerr Provider Input: 05/17/2018; patient has Cdiff. 05/14/2018 Patient has not been seen by psychiatirst yet. Still had altered mental status as of yesterday regarding dying. 05/11/18: Pt has not been seen by this MD as yet, scheduled assessment today. Nurse(s) Present: RN Nurse Input: 05/17/2018; patient has Cdiff, she is compliant with medication and meals. 05/14/2018 Patient has been vomiting and complaining of nausea. An IV Zofran was been ordered. Psychiatric Counselors Present: Jessica Montez [facility], Other Psychiatric Therapist Input: Counselor have completed level 1, and nurse [id number] forms on chart Group Spec/RT/OT/LAUREANO Input: 05/17/2018; patient is unable to participate with groups or activities. 05/14/2018 Patient stated that she was ok with dying. Questioned why she thought that and said someone told her upon admission. 05/11: New pt; no hx yet - Discharge Plan Other ([facility] rehab or another facility in [place].) 05/11/18: Pt was living at [facility], anticipated to return when stable and when facility can re-accept. - Documentation Teaching Recipient: Patient
[2018-05-17] MEDS: Lisinopril 5 MG Tablet PO SCH (12:59)
[2018-05-17] MEDS: OLANZapine 2.5 MG Tablet PO SCH (20:44)
[2018-05-18] MEDS: Polymyxin/Trimethop Opth Drops 10 ML Bottle EACH EYE SCH ×5 (03:49→20:41)
[2018-05-18] MEDS: Levothyroxine 50 MCG Tablet PO SCH (05:55)
[2018-05-18 08:23] LABS: Calcium 8.9 mg/dL (8.5-10.1); Carbon Dioxide 31.3 meq/L (21.0-32.0); Potassium 3.3 meq/L (3.5-5.1)
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
[2018-05-18] MEDS: Lisinopril 5 MG Tablet PO SCH (09:22)
[2018-05-18] MEDS: predniSONE 20 MG Tablet PO SCH (09:22)
[2018-05-18] MEDS: guaiFENesin 600 MG ER Tablet PO SCH ×2 (09:22→20:40)
[2018-05-18] MEDS: Potassium Bicarbonate 25 MEQ Effervescent Tablet PO SCH (09:22)
[2018-05-18] MEDS: Budesonide-Formoterol 160/4.5 MCG 6 GM Inhaler INH SCH ×2 (09:23→20:41)
--- NOTE | 2018-05-18 10:47 | P.DIET ---
Nutritional Evaluation Type of nutrition evaluation: initial Nutrition consult regarding: Diet Evaluation Nutrition screening: Poor PO Intake Screening comments: 05/18 [facility] [place] intake Subjective Barriers to Nutrition: Refuses to eat at times Objective - Diagnosis AMS - Objective Body Mass Index: 34.4 % IBW: 183 (IBW = 90lb) Body Weight Used for Calculations: Actual (74.7kg) Energy Needs - Lower Range (kCal/kg): 22 Energy Needs - Upper Range (kCal/kg): 25 Lower Limit kCal/kg (kCals): 1,643 Upper Limit kCal/kg (kCals): 1,868 Lower Limit Protein Factor (Grams per Kg): 1.1 Upper Limit Protein Factor (Grams per Kg): 1.3 Lower Protein Needs (Protein): 82 Upper Protein Needs (Protein): 97 Dietitian Reviewed in Medical Record: Current diet, Curent medications, Intake & Output, Labs, Medical history Diet Order: cardiac diet w/ensure original BID Oral Diet Intake Amount: Fair 50-75% Objective Comments: PMH: COPD, GERD, high cholesterol, HTN, hypothyroidism, legally blind, TIA Labs: Na 147, K 3.3 Assessment Assessment: Pt at nutritional risk r/t reported poor PO intake. Pt consuming around 50% of most meals on avrg and drinks around 25% of her PO supplements, refusing multiple meals. RD to recommend Ensure Enlive TID to better meet pts nutritional needs. Continue to monitor PO and supplement intake. Encourage PO intake. Labs reviewed, dietitian following. Recommendations: 1. RD to recommend Ensure Enlive TID to better meet pts nutritional needs 2. Continue to monitor PO and supplement intake 3. Encourage PO intake 4. Dietitian following Dietitian to Monitor: Lab values, Supplement acceptance, Intake & Output, Diet tolerance, PO Intake, Medical course
[2018-05-18] MEDS: Acetaminophen 500 MG Tablet PO PRN ×2 (12:03→20:40)
--- NOTE | 2018-05-18 14:05 | P.TTN ---
- Patient Problems Problems: 1. Discharge planning 2. Medication compliance 3. Knowledge deficit 4. Lack of coping skills - Progress Toward Goals Provider Present: Dr. Elizabeth Kerr Provider Input: 05/18/18: Pt has no recent medication changes per psychiatrist, pt continues to receive PT and OT services and is making limited progress as pt' s physical strength and motivation are deficient. Discharge plan is for pt to go to [facility] when pt meets their criteria, javan Lopezor to follow-up, C- Diff is a limiting factor to pt discharge. 05/17/2018; patient has Cdiff. Patient has not been seen by psychiatirst yet. Still had altered mental status as of yesterday regarding dying. 05/11/18: Pt has not been seen by this MD as yet, scheduled assessment today. Nurse(s) Present: RN Nurse Input: 05/17/2018; patient has Cdiff, she is compliant with medication and meals. 05/14/2018 Patient has been vomiting and complaining of nausea. An IV Zofran was been ordered. Psychiatric Counselors Present: Jessica Montez [facility], Other Psychiatric Therapist Input: Counselor have completed level 1, and nurse [id number] forms on chart Group Spec/RT/OT/LAUREANO Input: 05/18/18: Pt unable to tolerate groups. 05/17/2018 ; patient is unable to participate with groups or activities. 05/14/2018 Patient stated that she was ok with dying. Questioned why she thought that and said someone told her upon admission. 05/11/18: New pt; no hx yet Occupational Therapist Input: 05/18/18: Pt is very poorly motivated, this in combination with her C-Diff, her significant deconditioning, her lack of energy limit pt's progress. - Discharge Plan Other ([facility] rehab or another facility in [place].) 05/18/18: Discharge plan is for pt to go to [facility] when pt meets their criteria, javan Lopezor to follow-up, C-Diff is a limiting factor to pt discharge. 05/11/18: Pt was living at [facility], anticipated to return when stable and when facility can re-accept. - Documentation Teaching Recipient: Patient
--- NOTE | 2018-05-18 14:05 | P.PNPSY ---
Subjective Chief Complaint: Nick Act Remarks: Patient seen and examined. Chart reviewed. Case discussed with nurse. Some paranoia noted by nursing staff. No loose stools today. Case discussed in treatment team. On my examination today, patient is awake and alert. She is oriented to person, [place], after 2017. She does present as paranoid, believing people are threatening to hit her in the head. Affect somewhat labile. She asks me, "did you ever see a patient who doesn't want to get better? My body is broken and my heart." Becomes somewhat tearful discussing losses of treasured pets. No SI. No side effects from medications. No physical complaints. Vital Signs Temp Pulse Resp BP Pulse Ox 05/18/18 08:02 97 05/18/18 07:00 53 L 16 05/18/18 05:45 97.8 F 64 16 152/67 H 92 L 05/17/18 20:00 18 05/17/18 17:33 97.5 F L 59 L 18 115/56 L 97 Intake and Output 05/17/18 05/18/18 05/18/18 22:59 06:59 14:59 Intake Total 240 / 240 Balance 240 / 240 Intake: Oral 240 / 240 Other: # Voids 2 Date of Last Bowel Movement 05/15/18 Laboratory Results - last 24 hr 05/18/18 05/18/18 06:17 11:17 Sodium 147 H Potassium 3.3 L Chloride 108 H Carbon Dioxide 31.3 Anion Gap 8 BUN 12 Creatinine 0.68 Estimated GFR 84 L Random Glucose 87 Calcium 8.9 Magnesium 2.0 Labs reviewed. Review of Systems All other systems reviewed negative except as stated in HPI Mental Status Examination Appearance: Disheveled Consciousness: Alert Orientation: Person Motor Activity: Other (No abnormal motor movements noted) Speech: Unremarkable Language: Other (Rambling) Fund of Knowledge: Inadequate Attention and Concentration: Easily distracted Memory: Impaired Mood: Anxious Affect: Labile (Mild) Thought Process & Associations: Other (Slowed) Thought Content: Delusional, Other (Poverty of thought) Hallucination Type: None Delusion Type: Paranoid Suicidal Ideation: No Homicidal Ideation: No Insight: Poor Judgment: Poor Assessment and Plan - Assessment (1) Major neurocognitive disorder due to another medical condition with behavioral disturbance Code(s): F02.81 - Dementia in other diseases classified elsewhere with behavioral disturbance Status: Acute (2) COPD (chronic obstructive pulmonary disease) Code(s): J44.9 - Chronic obstructive pulmonary disease, unspecified Status: Acute - Plan Plan: Titrate Zyprexa to 1.25 mg twice a day to target residual psychiatric symptoms. Patient seems to be improving with respect to her C. difficile. Hospitalist input noted and appreciated. Continue to monitor on the inpatient unit. Continue other medications and care as ordered. Justification for Continued Inpatient Stay: Medication changes. Risk for decompensation and less restrictive environment. Complicating conditions. Discharge Planning: To rehab facility, probably later in the week. Case discussed with counselor. Request Healthcare Surrogate/Guardian Advocate?: Yes
[2018-05-18] MEDS: OLANZapine 2.5 MG Tablet PO SCH ×2 (14:55→20:40)
[2018-05-18] MEDS ORDERED: Potassium Bicarbonate 25 MEQ Effervescent Tablet PO ONE (15:00)
[2018-05-19] MEDS: Polymyxin/Trimethop Opth Drops 10 ML Bottle EACH EYE SCH ×4 (03:10→20:05)
[2018-05-19] MEDS: Levothyroxine 50 MCG Tablet PO SCH (05:21)
[2018-05-19] MEDS: guaiFENesin 600 MG ER Tablet PO SCH ×2 (08:36→20:04)
[2018-05-19] MEDS: predniSONE 20 MG Tablet PO SCH (08:36)
[2018-05-19] MEDS: Lisinopril 5 MG Tablet PO SCH (08:37)
[2018-05-19] MEDS: Potassium Bicarbonate 25 MEQ Effervescent Tablet PO SCH (09:17)
[2018-05-19] MEDS: Budesonide-Formoterol 160/4.5 MCG 6 GM Inhaler INH SCH ×2 (09:17→20:05)
[2018-05-19] MEDS: OLANZapine 2.5 MG Tablet PO SCH ×2 (09:33→20:04)
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
--- NOTE | 2018-05-19 11:24 | P.PNPSY ---
Subjective Chief Complaint: Nick Act Remarks: Patient seen and examined. Chart reviewed. Patient ate 75/85/25% of meals yesterday. Case discussed with RN. No further loose stools per RN. Case discussed with midlevel provider from hospitalist service. On my exam, patient remains forgetful. She is awake and alert. She repeats material we have previously discussed, such as about her 21 year-old animal. Some resistance to rehabilitation placement today, but a homegoing plan is clearly unsafe given patient's level of debility. No medication side effects. No physical complaints. Vital Signs Temp Pulse Resp BP Pulse Ox 05/19/18 08:24 56 L 22 98 05/19/18 05:56 98.3 F 68 18 173/78 H 93 L 05/18/18 17:10 98.3 F 71 16 105/55 L 93 L 05/18/18 15:35 67 14 Intake and Output 05/18/18 05/19/18 05/19/18 22:59 06:59 14:59 Intake Total 1080 / 1080 480 / 480 Balance 1080 / 1080 480 / 480 Intake: Oral 1080 / 1080 480 / 480 Oral Supplement 0 / 0 Other: # Voids 3 3 Date of Last Bowel Movement 05/17/18 # Bowel Movements 1 Weight 72.9 kg Labs reviewed. Review of Systems All other systems reviewed negative except as stated in HPI (Limitation: poor historian.) Mental Status Examination Appearance: Disheveled Consciousness: Alert Orientation: Person Motor Activity: Other (No motoric abnormalities noted.) Speech: Unremarkable Language: Other (Rambling) Fund of Knowledge: Inadequate Attention and Concentration: Easily distracted Memory: Impaired Mood: Oppositional (Mild) Affect: Irritable (Mild) Thought Process & Associations: Other (Slowed) Thought Content: Other (Poverty of thought) Hallucination Type: None Delusion Type: None Suicidal Ideation: No Homicidal Ideation: No Insight: Poor Judgment: Poor Assessment and Plan - Assessment (1) Major neurocognitive disorder due to another medical condition with behavioral disturbance Code(s): F02.81 - Dementia in other diseases classified elsewhere with behavioral disturbance Status: Acute (2) COPD (chronic obstructive pulmonary disease) Code(s): J44.9 - Chronic obstructive pulmonary disease, unspecified Status: Acute - Plan Plan: Continue Zyprexa as ordered. Hospitalist input noted and appreciated. Continue to monitor on medical psychiatric unit. Continue other medications and care as ordered. Justification for Continued Inpatient Stay: Final discharge planning. Discharge Planning: Anticipate discharge to rehab facility tomorrow. Case discussed with counselor. Request Healthcare Surrogate/Guardian Advocate?: Yes
[2018-05-19] MEDS: Lactobacillus Acidophilus/L. Spores Tablet PO SCH ×2 (12:07→18:33)
[2018-05-19] MEDS: Acetaminophen 500 MG Tablet PO PRN (20:04)
[2018-05-20] MEDS: Polymyxin/Trimethop Opth Drops 10 ML Bottle EACH EYE SCH ×4 (03:20→20:07)
[2018-05-20] MEDS: Levothyroxine 50 MCG Tablet PO SCH (05:28)
[2018-05-20] MEDS: Lactobacillus Acidophilus/L. Spores Tablet PO SCH ×3 (08:12→17:25)
[2018-05-20] MEDS: OLANZapine 2.5 MG Tablet PO SCH (08:13)
[2018-05-20] MEDS: guaiFENesin 600 MG ER Tablet PO SCH ×2 (09:06→20:04)
[2018-05-20] MEDS: Lisinopril 5 MG Tablet PO SCH (09:07)
[2018-05-20] MEDS: Potassium Bicarbonate 25 MEQ Effervescent Tablet PO SCH (09:07)
[2018-05-20] MEDS: Budesonide-Formoterol 160/4.5 MCG 6 GM Inhaler INH SCH ×2 (09:08→20:07)
--- NOTE | 2018-05-20 11:01 | P.PNPSY ---
Subjective Chief Complaint: Nick Act Remarks: Patient seen and examined. Chart reviewed. Case discussed with nursing staff who reports that patient displayed some ongoing paranoia overnight and is somewhat reluctant to take meds. Case discussed with counselor, who reports that receiving facility is now saying they cannot accept patient until she has completed treatment for her C. Diff. On my exam, patient continues to display some paranoia. She is vague when asked about SI. No HI. No medication side effects. No physical complaints. Vital Signs Temp Pulse Resp BP Pulse Ox 05/20/18 05:55 98.4 F 61 18 129/60 97 05/19/18 18:19 98.3 F 69 18 143/65 H 91 L 05/19/18 15:38 98 05/19/18 15:37 56 L 20 Intake and Output 05/19/18 05/20/18 05/20/18 22:59 06:59 14:59 Intake Total 240 / 240 60 / 60 Balance 240 / 240 60 / 60 Intake: Oral 240 / 240 60 / 60 Other: Date of Last Bowel Movement 05/19/18 05/19/18 # Bowel Movements 1 Labs reviewed. No new labs. Review of Systems All other systems reviewed negative except as stated in HPI (Limitation: Poor historian) Mental Status Examination Appearance: Disheveled Consciousness: Alert Orientation: Person, Place (Hospital), Date/Time (2017) Motor Activity: Other (No hand tremor, no cogwheeling, no dystonia, no dyskinesia, no other motor abnormalities noted.) Speech: Unremarkable Language: Other (Rambling) Fund of Knowledge: Inadequate Attention and Concentration: Easily distracted Memory: Impaired Mood: Other (Somewhat dysphoric) Affect: Blunt Thought Process & Associations: Other (Slowed) Thought Content: Other (Poverty of thought) Hallucination Type: None Delusion Type: Paranoid Insight: Poor Judgment: Poor Mental Status Exam Remarks: Vague SI, no plan or intent. No HI. Assessment and Plan - Assessment (1) Major neurocognitive disorder due to another medical condition with behavioral disturbance Code(s): F02.81 - Dementia in other diseases classified elsewhere with behavioral disturbance Status: Acute (2) COPD (chronic obstructive pulmonary disease) Code(s): J44.9 - Chronic obstructive pulmonary disease, unspecified Status: Acute - Plan Plan: Titrate Zyprexa to 1.25/1.875mg to target paranoia in setting of dementia. Continue to monitor on medical psychiatric unit. Hospitalist input appreciated. Continue other care as ordered. Justification for Continued Inpatient Stay: Medication changes. High risk for decompensation in less restrictive environment. Discharge Planning: Rehab placement once facility is able to accept patient. Request Healthcare Surrogate/Guardian Advocate?: Yes
[2018-05-20] MEDS ORDERED: OLANZapine 2.5 MG Tablet PO SCH (21:00)
[2018-05-21] MEDS: Polymyxin/Trimethop Opth Drops 10 ML Bottle EACH EYE SCH ×4 (03:11→21:37)
[2018-05-21] MEDS: Levothyroxine 50 MCG Tablet PO SCH (05:21)
[2018-05-21] MEDS: Lisinopril 5 MG Tablet PO SCH (09:30)
[2018-05-21] MEDS: Budesonide-Formoterol 160/4.5 MCG 6 GM Inhaler INH SCH ×2 (09:30→21:37)
[2018-05-21] MEDS: Lactobacillus Acidophilus/L. Spores Tablet PO SCH ×2 (09:30→13:08)
[2018-05-21] MEDS: OLANZapine 2.5 MG Tablet PO SCH ×2 (09:30→21:36)
[2018-05-21] MEDS: guaiFENesin 600 MG ER Tablet PO SCH ×2 (09:30→21:36)
[2018-05-21] MEDS: Potassium Bicarbonate 25 MEQ Effervescent Tablet PO SCH (09:30)
--- NOTE | 2018-05-21 11:44 | P.PNPSY ---
Subjective Chief Complaint: Nick Act Remarks: Patient seen and examined with nurse. Chart reviewed. Case discussed with RN who reports patient is refusing all but a small quantity of food today. I note that her oral intake was similarly poor yesterday. She also has been resistant to taking medications. She was reportedly having visual hallucinations overnight. Case discussed in treatment team. On my exam, patient is laying in bed with eyes tightly shut. Her nasal cannula has been displaced and she resists my efforts to replace it. She remains very confused, as at recent baseline. When I inquire about her poor oral intake, she tells me that she is refusing to eat because she wants to "go home." When I explain that refusing to eat will only weaken her condition and make a discharge from the hospital more difficult, she replies "no. I want to go to my home" and then gestures up , as if heavenward. She denies any active desire to end her life. Affect is somewhat dysphoric, although patient does not describe feeling particularly depressed. She is evasive when I ask about her VH overnight. No medication side effects. No acute physical complaints. Vital Signs Temp Pulse Resp BP Pulse Ox 05/21/18 05:49 97.6 F 62 16 138/66 95 05/20/18 17:49 97.6 F 65 16 135/70 Intake and Output 05/20/18 05/21/18 05/21/18 22:59 06:59 14:59 Intake Total 360 / 360 Balance 360 / 360 Intake: Oral 360 / 360 Other: # Voids 0 Date of Last Bowel Movement 05/19/18 # Bowel Movements 0 Labs reviewed. Review of Systems All other systems reviewed negative except as stated in HPI (Limitation: poor historian.) Mental Status Examination Appearance: Disheveled Consciousness: Alert Orientation: Person, Place Motor Activity: Other (No motor abnormalities noted.) Speech: Unremarkable Language: Other (Remains rambling.) Fund of Knowledge: Inadequate Attention and Concentration: Easily distracted Memory: Impaired Mood: Other (Mildly dysphoric) Affect: Other (Blunted, tending towards flat.) Thought Process & Associations: Other (Remains slowed) Thought Content: Hallucinations, Other (Poverty of thought) Hallucination Type: Visual Delusion Type: None Suicidal Ideation: No (but is refusing food) Suicidal Plan: No Suicidal Intention: No Homicidal Ideation: No Insight: Poor Judgment: Poor Assessment and Plan - Assessment (1) Major neurocognitive disorder due to another medical condition with behavioral disturbance Code(s): F02.81 - Dementia in other diseases classified elsewhere with behavioral disturbance Status: Acute (2) COPD (chronic obstructive pulmonary disease) Code(s): J44.9 - Chronic obstructive pulmonary disease, unspecified Status: Acute - Plan Plan: Titrate Zyprexa, which does not appear to be as sedating now with slower titration, to 1.25mg qAM and 2.5mg qHS to target psychosis in setting of dementia. It is hoped that this will also help promote appetite. I will check an updated CMP as well as Mg and PO4 in light of poor oral intake and request hospitalist consultation for further assessment and management of this issue. Dietitian is following. We have not yet been able to obtain copy of advanced directives. Although I do suspect that patient's food refusal has its basis in her dementia with behavioral disturbance, in light of our interview today I will request palliative medicine consultation to assess goals of care with patient and HCS prior to any invasive procedures (e.g. PEG). Continue to monitor on medical psychiatric unit. Continue other care as ordered. Justification for Continued Inpatient Stay: Med changes. Impairment in self-care. High risk for decompensation in less restrictive setting. Discharge Planning: Plan presently is for rehabilitation placement following completion of treatment for C. difficile. Case discussed with counselor. Request Healthcare Surrogate/Guardian Advocate?: Yes
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
[2018-05-21] MEDS ORDERED: Sodium Chloride 0.9% 2 ML Flush PRN IV.FLUSH (17:26)
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
[2018-05-21] MEDS: Acetaminophen 500 MG Tablet PO PRN (21:36)
[2018-05-21] MEDS: Sodium Chloride 0.9% 2 ML Flush BID IV.FLUSH SCH (22:50)
[2018-05-21] MEDS: Sod Chloride 0.9% Inj 1,000 ML IV.CONT SCH (23:05)
[2018-05-22] MEDS: Polymyxin/Trimethop Opth Drops 10 ML Bottle EACH EYE SCH ×2 (03:14→08:18)
[2018-05-22] MEDS: Levothyroxine 50 MCG Tablet PO SCH (05:28)
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
[2018-05-22] MEDS: Budesonide-Formoterol 160/4.5 MCG 6 GM Inhaler INH SCH ×2 (08:16→20:50)
[2018-05-22] MEDS: Potassium Bicarbonate 25 MEQ Effervescent Tablet PO SCH (08:17)
[2018-05-22] MEDS: OLANZapine 2.5 MG Tablet PO SCH ×2 (08:18→20:50)
[2018-05-22] MEDS: Lisinopril 5 MG Tablet PO SCH (08:18)
[2018-05-22] MEDS: Lactobacillus Acidophilus/L. Spores Tablet PO SCH ×3 (08:18→18:01)
[2018-05-22] MEDS: guaiFENesin 600 MG ER Tablet PO SCH ×2 (08:19→20:50)
[2018-05-22] MEDS: Sodium Chloride 0.9% 2 ML Flush BID IV.FLUSH SCH ×2 (08:20→20:51)
[2018-05-22 08:46] LABS: Alanine Aminotransferase 17 U/L (10-53); Albumin 2.3 g/dL (3.4-5.0); Anion Gap 7 meq/L (5-15); Aspartate Aminotransferase 21 U/L (15-37); Blood Urea Nitrogen 7 mg/dL (7-18); Calcium 8.4 mg/dL (8.5-10.1); Carbon Dioxide 29.2 meq/L (21.0-32.0); Chloride 109 meq/L (98-107); Glomerular Filtration Rate 87 mL/min (>89); Glucose,Random 87 mg/dL (74-106); Phosphorus 3.3 mg/dL (2.5-4.9); Potassium 3.5 meq/L (3.5-5.1); Sodium 145 meq/L (136-145)
[2018-05-22 08:49] LABS: Alkaline Phosphatase 67 U/L (45-117); Total Protein 5.2 g/dL (6.4-8.2)
[2018-05-22] MEDS ORDERED: Potassium Chloride 25 MEQ Effervescent Tablet PO ONE (11:00)
--- NOTE | 2018-05-22 12:38 | US ---
EXAM DATE: 05/22/2018 12:31 PM EST AGE/SEX: 78 years / Female INDICATIONS: Right upper quadrant pain. CLINICAL DATA: This is the patient's initial encounter. Patient reports that signs and symptoms have been present for 1 day and indicates a pain score of Nonresponsive. MEDICAL/SURGICAL HISTORY: Chronic obstructive pulmonary disease. Gastroesophageal reflux disea se. Hypercholesterolemia. Hypothyroidism. Legally blind. Transient ischemic attack. Cholecystectom y. Back surgery. Oophorectomy. COMPARISON: No prior exams available for comparison. MEASUREMENTS: Liver:__ 16.4 cm. Common Bile Duct:__ 12mm. Right Kidney:__ 8.8 x 5.0 x 4.0 cm. FINDINGS: Liver: Increased echotexture without focal lesion or ductal dilation. Portal Vein: Hepatopedal flow seen in portal vein. Common Duct: No intraluminal mass or stone visualized. Gallbladder: Surgically absent. Pancreas: Not well visualized. Right Kidney: Increased echotexture. The right kidney appears to be atrophic. No mass or hydronephro sis. Other: None. CONCLUSION: 1. There is increased echogenicity throughout the liver parenchyma suggestive of fatty infiltration and/or hepatocellular disease. No biliary tract obstruction. 2. Atrophic right kidney with increased echogenicity of the renal parenchyma suggestive of chronic m edical renal disease. No evidence of hydronephrosis. Electronically signed by: Zeke Stevens MD 05/22/2018 12:37 PM EST
--- NOTE | 2018-05-22 13:59 | P.PNPSY ---
Subjective Chief Complaint: [employer] Act Remarks: Patient was seen and case discussed with nursing. Per nursing patient has a preoccupation that she is dying. For my interview, patient is somnolent during the interview and minimally interactive. She is whispering and difficult to understand. She does say she is tired and wants to sleep. She is compliant with her medications and has not had any outbursts. Mental Status Examination Appearance: Disheveled Consciousness: Alert Orientation: Person, Place Motor Activity: Other (No motor abnormalities noted.) Speech: Unremarkable Language: Other (Remains rambling.) Fund of Knowledge: Inadequate Attention and Concentration: Easily distracted Memory: Impaired Mood: Other (Mildly dysphoric) Affect: Other (Blunted, tending towards flat.) Thought Process & Associations: Other (Remains slowed) Thought Content: Other (Poverty of thought) Hallucination Type: None Delusion Type: None Suicidal Ideation: No (but is refusing food) Suicidal Plan: No Suicidal Intention: No Homicidal Ideation: No Homicidal Plan: No Homicidal Intention: No Insight: Poor Judgment: Poor Assessment and Plan - Assessment (1) Major neurocognitive disorder due to another medical condition with behavioral disturbance Code(s): F02.81 - Dementia in other diseases classified elsewhere with behavioral disturbance Status: Acute (2) COPD (chronic obstructive pulmonary disease) Code(s): J44.9 - Chronic obstructive pulmonary disease, unspecified Status: Acute - Plan Plan: Continue current treatment plan Justification for Continued Inpatient Stay: Patient would decompensate in a less restrictive setting Request Healthcare Surrogate/Guardian Advocate?: Yes
[2018-05-22] MEDS: Sod Chloride 0.9% Inj 1,000 ML IV.CONT SCH (18:02)
[2018-05-22] MEDS: Acetaminophen 500 MG Tablet PO PRN (18:12)
[2018-05-23] MEDS: Levothyroxine 50 MCG Tablet PO SCH (05:23)
[2018-05-23] MEDS: Budesonide-Formoterol 160/4.5 MCG 6 GM Inhaler INH SCH ×2 (08:13→20:14)
[2018-05-23] MEDS: Potassium Bicarbonate 25 MEQ Effervescent Tablet PO SCH (08:14)
[2018-05-23] MEDS: guaiFENesin 600 MG ER Tablet PO SCH ×2 (08:14→20:15)
[2018-05-23] MEDS: Lisinopril 5 MG Tablet PO SCH (08:14)
[2018-05-23] MEDS: OLANZapine 2.5 MG Tablet PO SCH ×2 (08:14→20:15)
[2018-05-23] MEDS: Lactobacillus Acidophilus/L. Spores Tablet PO SCH ×3 (08:14→17:28)
[2018-05-23] MEDS: Sodium Chloride 0.9% 2 ML Flush BID IV.FLUSH SCH ×2 (08:15→20:15)
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
[2018-05-23] MEDS: Sod Chloride 0.9% Inj 1,000 ML IV.CONT SCH (14:11)
[2018-05-23] MEDS: Acetaminophen 500 MG Tablet PO PRN (22:25)
[2018-05-24] MEDS: Levothyroxine 50 MCG Tablet PO SCH (05:44)
[2018-05-24 08:22] LABS: Calcium 8.3 mg/dL (8.5-10.1); Carbon Dioxide 26.3 meq/L (21.0-32.0); Potassium 3.5 meq/L (3.5-5.1)
[2018-05-24] MEDS: Potassium Bicarbonate 25 MEQ Effervescent Tablet PO SCH (08:32)
[2018-05-24] MEDS: Budesonide-Formoterol 160/4.5 MCG 6 GM Inhaler INH SCH ×2 (08:32→20:19)
[2018-05-24] MEDS: OLANZapine 2.5 MG Tablet PO SCH ×2 (08:33→20:19)
[2018-05-24] MEDS: Lactobacillus Acidophilus/L. Spores Tablet PO SCH ×3 (08:33→17:40)
[2018-05-24] MEDS: guaiFENesin 600 MG ER Tablet PO SCH ×2 (08:33→20:19)
[2018-05-24] MEDS: Lisinopril 5 MG Tablet PO SCH (08:33)
[2018-05-24] MEDS: Sodium Chloride 0.9% 2 ML Flush BID IV.FLUSH SCH ×3 (08:35→20:21)
--- NOTE | 2018-05-24 09:55 | P.PNPSY ---
Subjective Chief Complaint: Nick Act Remarks: Patient seen and examined. Chart reviewed. According to charting, patient ate 25% of breakfast yesterday but then refused lunch and dinner. Case discussed with nursing staff reports patient remains paranoid and intermittently refusing medications. Yesterday, patient was reportedly cursing at staff and accusing staff of giving her poison. She refused food this morning, reportedly telling the nurse that she does not eat cats. On my exam, patient is more alert and oriented versus before the weekend, although she does remain fairly confused overall. She endorses AH of "some noises." Regarding patient's poor oral intake, patient initially says "I'll eat" but then says "just let me pass" when I broach the subject of PEG placement. She denies significant issues with mood. No SI. No side effects from medications. No acute physical complaints. Vital Signs Temp Pulse Resp BP Pulse Ox 05/24/18 09:00 16 05/24/18 06:07 97.6 F 66 16 104/60 95 05/23/18 20:36 59 L 20 98 05/23/18 16:17 97.6 F 61 17 180/80 H 99 05/23/18 12:54 95 Intake and Output 05/23/18 05/24/18 05/24/18 22:59 06:59 14:59 Intake Total 120 / 120 240 / 240 1000 / 1000 Balance 120 / 120 240 / 240 1000 / 1000 Intake: IV 1000 / 1000 NS Inj 1,000 ML @ 50 mls/hr IV. 1000 / 1000 CONT .Q20H COUNT INCLUDES THE [facility] Rx#:[id number] Oral 120 / 120 240 / 240 Other: # Voids 3 # Incontinent Voids 2 # Urine Diapers 2 Date of Last Bowel Movement 05/22/18 Weight 76.6 kg Laboratory Results - last 24 hr 05/24/18 07:14 Sodium 145 Potassium 3.5 Chloride 115 H Carbon Dioxide 26.3 Anion Gap 4 L BUN 5 L Creatinine 0.65 Estimated GFR 88 L Random Glucose 88 Calcium 8.3 L Labs reviewed. Impressions Liver Ultrasound 05/22/18 00:00 CONCLUSION: 1. There is increased echogenicity throughout the liver parenchyma suggestive of fatty infiltration and/or hepatocellular disease. No biliary tract obstruction. 2. Atrophic right kidney with increased echogenicity of the renal parenchyma suggestive of chronic medical renal disease. No evidence of hydronephrosis. Review of Systems All other systems reviewed negative except as stated in HPI (Limitation: Poor historian) Mental Status Examination Appearance: Disheveled Consciousness: Alert Orientation: Person, Place ([place]), Date/Time (May,) Motor Activity: Other (No abnormal motor movements noted) Speech: Unremarkable Language: Other (Remains rambling.) Fund of Knowledge: Inadequate Attention and Concentration: Easily distracted Memory: Impaired Mood: Other (Calm) Affect: Blunt Thought Process & Associations: Other (Remains slowed) Thought Content: Other (Ongoing poverty of thought) Hallucination Type: None Delusion Type: None Suicidal Ideation: No (Ongoing food refusal.) Suicidal Plan: No Suicidal Intention: No Homicidal Ideation: No Insight: Poor Judgment: Poor Assessment and Plan - Assessment (1) Major neurocognitive disorder due to another medical condition with behavioral disturbance Code(s): F02.81 - Dementia in other diseases classified elsewhere with behavioral disturbance Status: Acute (2) COPD (chronic obstructive pulmonary disease) Code(s): J44.9 - Chronic obstructive pulmonary disease, unspecified Status: Acute - Plan Plan: Titrate Zyprexa to 2.5mg BID to target psychotic symptoms in the setting of patient's neurocognitive disorder. Remeron has been added by the palliative medicine team, continue. Palliative medicine and hospitalist input noted and appreciated. Continue to monitor on the medical psychiatric unit. Continue other medications and care as ordered. Justification for Continued Inpatient Stay: Medication changes. Impairment in reality construction. High risk for decompensation in less restrictive environment. Discharge Planning: Possible discharge to rehab pending stabilization and clarification of goals of care. Case discussed with nurse discharge planner. Request Healthcare Surrogate/Guardian Advocate?: Yes
[2018-05-24] MEDS: Sod Chloride 0.9% Inj 1,000 ML IV.CONT SCH (10:12)
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
[2018-05-24] MEDS: Nystatin 100,000 UNITS/GM Powder 15 GM Bottle TOPICAL SCH ×3 (12:55→20:19)
--- NOTE | 2018-05-24 15:55 | P.PNPAL ---
Palliative care continues to follow along with Ms. Castro. Dual visit with Alfredo Olivier APRN. Patient seen in room 401. She is currently lying in bed, awake, alert, and able to make her needs known. At times she is appropriate in conversation and at other times goes into tangents. Easily redirectable. Ms. Castro becomes tearful at times talking about her animals being taken from her and discussing inability to trust anyone. When asked what brought her into the hospital she replied "insanity". Further states she was [place] acted. Attempted to gently explore support system in terms of health care decision maker. She becomes tearful and reports she does not have anyone. At this time she remains unable to make a decision regarding appointing a health care surrogate and/or addressing her own medical goals of treatment. Ms. Castro remains under involuntary status via maldonado act court order. Her guardian advocate is her cousin, Felice. Nursing reports Don calls everyday to check on Ms. Castro. Gently explore patient's eating habits while in the hospital. She tells me she is not eating well because of her inability to trust what's in the food/water/ etc. Would recommend getting a calorie count to further determine need for possible PEG with guardian advocate/cousin. Spoke with RN and updated on above. Palliative care will continue to follow throughout hospitalization.
[2018-05-24] MEDS: Acetaminophen 500 MG Tablet PO PRN (17:46)
[2018-05-25] MEDS: Sod Chloride 0.9% Inj 1,000 ML IV.CONT SCH (05:39)
[2018-05-25] MEDS: Levothyroxine 50 MCG Tablet PO SCH (05:39)
[2018-05-25] MEDS: OLANZapine 2.5 MG Tablet PO SCH ×2 (08:55→20:28)
[2018-05-25] MEDS: guaiFENesin 600 MG ER Tablet PO SCH ×2 (08:55→20:28)
[2018-05-25] MEDS: Lisinopril 5 MG Tablet PO SCH (08:55)
[2018-05-25] MEDS: Budesonide-Formoterol 160/4.5 MCG 6 GM Inhaler INH SCH ×2 (08:56→20:29)
[2018-05-25] MEDS: Lactobacillus Acidophilus/L. Spores Tablet PO SCH ×3 (08:58→17:37)
[2018-05-25] MEDS: Sodium Chloride 0.9% 2 ML Flush BID IV.FLUSH SCH ×2 (08:59→20:30)
[2018-05-25] MEDS: Nystatin 100,000 UNITS/GM Powder 15 GM Bottle TOPICAL SCH ×4 (09:06→20:30)
[2018-05-25] MEDS: Potassium Bicarbonate 25 MEQ Effervescent Tablet PO SCH (09:06)
--- NOTE | 2018-05-25 10:52 | P.TTN ---
- Patient Problems Problems: 1. Discharge planning 2. Medication compliance 3. Knowledge deficit 4. Lack of coping skills - Progress Toward Goals Provider Present: Dr. Elizabeth Kerr Provider Input: 05/24/2018:05/25/2018: Per treating psychiatrist, patient isnt eating, and he will be consulting Palliative care to clarify treatment goal. : Pt has no recent medication changes per psychiatrist, pt continues to receive PT and OT services and is making limited progress as pt's physical strength and motivation are deficient. Discharge plan is for pt to go to [facility] when pt meets their criteria, Jessica, counselor to follow-up, C-Diff is a limiting factor to pt discharge. 05/17/2018; patient has Cdiff. 05/14/2018 Patient has not been seen by psychiatirst yet. Still had altered mental status as of yesterday regarding dying. 05/11/18: Pt has not been seen by this MD as yet, scheduled assessment today. Nurse(s) Present: RN Nurse Input: 05/25/2018; per RN patient has poor oral intake, total assistance with care, is on IB fluids, taking her medication. 05/17/2018; patient has Cdiff, she is compliant with medication and meals. 05/14/2018 Patient has been vomiting and complaining of nausea. An IV Zofran was been ordered. Psychiatric Counselors Present: Jessica Montez [facility], Other Psychiatric Therapist Input: 05/25/2018; [facility] has accepted patient pending medical clearance. Counselor have completed level 1, and nurse [id number] forms on chart Group Spec/RT/OT/LAUREANO Input: 05/25/2018; pt is unable to tolerate groups at this time. 05/18/18: Pt unable to tolerate groups. 05/17/2018; patient is unable to participate with groups or activities. 05/14/2018 Patient stated that she was ok with dying. Questioned why she thought that and said someone told her upon admission. 05/11/18: New pt; no hx yet Occupational Therapist Input: 05/18/18: Pt is very poorly motivated, this in combination with her C-Diff, her significant deconditioning, her lack of energy limit pt's progress. - Discharge Plan Other ([facility] or another facility in [place].) 05/18/18: Discharge plan is for pt to go to [facility] when pt meets their criteria, Jessica, counselor to follow-up, C-Diff is a limiting factor to pt discharge. 05/11/18: Pt was living at [facility], anticipated to return when stable and when facility can re-accept. - Documentation Teaching Recipient: Patient
--- NOTE | 2018-05-25 12:38 | P.DIET ---
Nutritional Evaluation Type of nutrition evaluation: follow-up Nutrition consult regarding: Diet Evaluation Nutrition screening: Poor PO Intake Screening comments: 05[place]18 [facility] [place] Subjective Barriers to Nutrition: Refuses to eat at times Subjective Comments: Pt sleeping when visit attempted. Nursing reports pt refused breakfast today. MICHAELA Fernandes informed a Calorie Count has been started. Objective - Diagnosis AMS - Objective % IBW: 183 (IBW = 90lb) Body Weight Used for Calculations: Actual (74.7kg) Energy Needs - Lower Range (kCal/kg): 22 Energy Needs - Upper Range (kCal/kg): 25 Lower Limit kCal/kg (kCals): 1,643 Upper Limit kCal/kg (kCals): 1,868 Lower Limit Protein Factor (Grams per Kg): 1.1 Upper Limit Protein Factor (Grams per Kg): 1.3 Lower Protein Needs (Protein): 82 Upper Protein Needs (Protein): 97 Dietitian Reviewed in Medical Record: Current diet, Curent medications, Intake & Output, Labs, Medical history Diet Order: Cardiac Oral Diet Intake Amount: Poor <50% Objective Comments: PMH: COPD, GERD, high cholesterol, HTN, hypothyroidism, legally blind, TIA Labs include: A1C 4.5 Meds include: Remeron, Lactinex, Synthroid, Lisinopril, Bystolic, Zyprexa Feeding - Current PO Supplement Current Supplement: Ensure Enlive Current Frequency of Supplement: Three times a day Current kCals Provided by Supplement: 350 Current Protein Provided by Supplement: 20 Assessment Assessment: Pt continues at nutritional risk r/t poor PO intake. Pt refuses meals regularly and has inadequate po intake less than 50% for meals she does eat. 05/24/18 Palliative Care noted w/ "Would recommend getting a calorie count to further determine need for possible PEG with guardian advocate/cousin". Calorie Count started 05/25 through 05/27 w/Nutrition Recs 05/28. Plan to replace Ensure Enlive TID w/ Mighty Shake TID r/t pt believes food is poisoned and Mighty Shakes are in a carton vs Ensure Enlive that is poured into a cup. Plan to send food that is sealed/covered when possible. Noted pt is receiving Remeron and this may stimulate appetite. Encourage PO intake. Labs reviewed. Wt noted. Dietitian following. Recommendations: 1. Calorie Count started 05/25 through 05/27 w/Nutrition Recs 05/28 2. Plan to replace Ensure Enlive TID w/ Mighty Shake TID 3. Plan to send food that is sealed/covered when possible 4. Noted pt is receiving Remeron and this may stimulate appetite 5. Encourage PO intake 6. Dietitian following Dietitian to Monitor: Lab values, Supplement acceptance, Intake & Output, Diet tolerance, Weight change, PO Intake, Medical course
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
--- NOTE | 2018-05-25 13:03 | P.PNPSY ---
Subjective Chief Complaint: Nick Act Remarks: Patient seen and examined with nurse. Chart reviewed. I note that the patient ate 25% of each of her meals yesterday and refused breakfast this morning. Case discussed with nursing staff who does not describe any ongoing paranoia or psychotic material but does comment on patient's poor oral intake and need for total care. Case discussed in treatment team. Case discussed with dietitian who has instituted calorie count as recommended by palliative medicine. On my examination today, patient is dozing in her room but is easily awakened. She seems to be in better spirits today. She denies any SI or AVH. Denies issues with mood. No psychotic material on my evaluation. No sedation or other side effects from medications. No acute physical complaints. Spoke with patient's cousin/HCS Felice Kovacs over the phone. We discuss patient's progress on the unit and discuss in particular patient's poor oral intake at this point. We discuss that Remeron has been added for appetite stimulation. Mr. Kovacs feels that patient would likely want a feeding tube placed on a temporary basis if needed, but he is not sure that patient would want such a device placed for long-term nutrition. He expresses appreciation for the care patient has been receiving so far and for the staff. I spent ~7 min in telephone consultation with Mr. Kovacs. Vital Signs Temp Pulse Resp BP Pulse Ox 05/25/18 06:00 97.7 F 59 L 18 145/67 H 18 L 05/24/18 16:02 98.6 F 57 L 16 145/63 H 99 Intake and Output 05/24/18 05/25/18 05/25/18 22:59 06:59 14:59 Intake Total 600 / 600 1600 / 1600 Balance 600 / 600 1600 / 1600 Intake: IV 1000 / 1000 NS Inj 1,000 ML @ 50 mls/hr IV. 1000 / 1000 CONT .Q20H [facility] Rx#:[id number] Oral 600 / 600 600 / 600 Other: # Voids 2 2 Date of Last Bowel Movement 05/24/18 05/24/18 # Bowel Movements 1 Labs reviewed. No new labs. Review of Systems All other systems reviewed negative except as stated in HPI (Limitation: Poor historian) Mental Status Examination Appearance: Disheveled Consciousness: Alert Orientation: Person, Place (At least) Motor Activity: Other (No motor abnormalities noted) Speech: Unremarkable Language: Other (Somewhat rambling) Fund of Knowledge: Inadequate Attention and Concentration: Easily distracted Memory: Impaired Mood: Other (Denies issues with mood) Affect: Blunt (Somewhat more reactive and euthymic today) Thought Process & Associations: Other (Remains slowed) Thought Content: Other (Poverty of thought in setting of dementia) Hallucination Type: None Delusion Type: None Suicidal Ideation: No Homicidal Ideation: No Insight: Poor Judgment: Poor Assessment and Plan - Assessment (1) Major neurocognitive disorder due to another medical condition with behavioral disturbance Code(s): F02.81 - Dementia in other diseases classified elsewhere with behavioral disturbance Status: Acute (2) COPD (chronic obstructive pulmonary disease) Code(s): J44.9 - Chronic obstructive pulmonary disease, unspecified Status: Acute - Plan Plan: Continue Zyprexa as ordered. Continue Remeron for appetite stimulation. Oral intake remains fairly poor, and patient is receiving IV fluids to supplement fluid intake. As noted above, health care surrogate believes that the patient would support placement of a feeding tube for temporary nutrition but not for long-term nutrition. Palliative medicine team is following, input appreciated. Hospitalist input noted and appreciated. Continue to monitor on the medical psychiatric unit. Continue other medications and care as ordered. Justification for Continued Inpatient Stay: High risk for decompensation in less restrictive environment. Discharge Planning: Pending stabilization and determination of goals of care. Request Healthcare Surrogate/Guardian Advocate?: Yes
--- NOTE | 2018-05-25 14:56 | XR ---
EXAM DATE: 05/25/2018 1:58 PM EST AGE/SEX: 78 years / Female INDICATIONS: Short of breath. CLINICAL DATA: This is the patient's subsequent encounter. Patient reports that signs and symptoms h ave been present for 3 days and indicates a pain score of 0/10. MEDICAL/SURGICAL HISTORY: . Chronic obstructive pulmonary disease. Gastroesophageal reflux dise ase. Hypercholesterolemia. Hypothyroidism. Legally blind. Transient ischemic attack. Cholecystectomy. Back surgery. Oophorectomy. . COMPARISON: [facility] [place] 1V SINGLE AP, 05/08/2018. . FINDINGS: Portable AP view of the chest demonstrates mildly enlarged cardiac silhouette. Lungs are underinflate d with mild bibasilar opacity. There is slight blunting of the left costophrenic sulcus. No pneumotho rax is identified. The bones and soft tissues demonstrate no acute abnormality. There has been prior vertebral plasty of one of the lumbar vertebral bodies. CONCLUSION: Underinflated examination with bibasilar opacity which could represent atelectasis or an interstitial or airspace process. There is a questionable small left pleural-based opacity which could indicate a small left effusion. These findings could be better evaluated with good inspiratory formal PA and la teral views of the chest, if needed. Electronically signed by: Stevo Baez MD 05/25/2018 2:55 PM EST
[2018-05-25] MEDS: Heparin - SQ 10,000 UNITS/ML Vial SQ SCH (20:27)
[2018-05-25] MEDS: Acetaminophen 500 MG Tablet PO PRN (20:28)
[2018-05-26] MEDS: Sod Chloride 0.9% Inj 1,000 ML IV.CONT SCH (02:15)
[2018-05-26] MEDS: Levothyroxine 50 MCG Tablet PO SCH (05:21)
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
[2018-05-26] MEDS: Lisinopril 5 MG Tablet PO SCH (08:11)
[2018-05-26] MEDS: Potassium Bicarbonate 25 MEQ Effervescent Tablet PO SCH (08:11)
[2018-05-26] MEDS: Lactobacillus Acidophilus/L. Spores Tablet PO SCH ×3 (08:11→17:46)
[2018-05-26] MEDS: Heparin - SQ 10,000 UNITS/ML Vial SQ SCH ×2 (08:11→21:57)
[2018-05-26] MEDS: OLANZapine 2.5 MG Tablet PO SCH ×2 (08:11→21:55)
[2018-05-26] MEDS: guaiFENesin 600 MG ER Tablet PO SCH ×2 (08:11→21:55)
[2018-05-26] MEDS: Budesonide-Formoterol 160/4.5 MCG 6 GM Inhaler INH SCH ×2 (08:12→21:54)
[2018-05-26] MEDS: Sodium Chloride 0.9% 2 ML Flush BID IV.FLUSH SCH ×2 (08:12→22:03)
[2018-05-26] MEDS: Nystatin 100,000 UNITS/GM Powder 15 GM Bottle TOPICAL SCH ×4 (08:12→22:02)
[2018-05-26 09:14] LABS: Anion Gap 6 meq/L (5-15); Blood Urea Nitrogen 4 mg/dL (7-18); Calcium 8.5 mg/dL (8.5-10.1); Carbon Dioxide 26.3 meq/L (21.0-32.0); Chloride 114 meq/L (98-107); Glomerular Filtration Rate Greater Than 89 mL/min (>89); Glucose,Random 80 mg/dL (74-106); Potassium 3.8 meq/L (3.5-5.1); Sodium 146 meq/L (136-145)
[2018-05-26] MEDS ORDERED: Polyvinyl Alcohol/Povidone PF Opth Drops 0.4 ML Dropperette EACH EYE PRN (09:46)
--- NOTE | 2018-05-26 10:29 | P.PNPSY ---
Subjective Chief Complaint: Nick Act Remarks: Patient seen and examined with nurse. Chart reviewed. Patient consumed 0/25/0 % of meals yesterday. Calorie count continues but oral intake will likely prove inadequate. Case discussed with nursing staff who reports patient ate a little better this morning. Case discussed with midlevel provider from hospitalist service and also with A Green from palliative medicine. On my exam , patient presents as fatigued. She remains confused as at recent baseline. She denies SI. Denies AVH. Denies issues with mood. No medication side effects. No acute physical complaints. Vital Signs Temp Pulse Resp BP Pulse Ox 05/26/18 09:00 14 05/26/18 06:00 97.6 F 58 L 14 150/70 H 92 L 05/25/18 18:08 99.5 F 66 16 Intake and Output 05/25/18 05/26/18 05/26/18 22:59 06:59 14:59 Intake Total 255 / 255 1120 / 1120 450 / 450 Output Total 0 / 0 Balance 255 / 255 1120 / 1120 450 / 450 Intake: IV 1000 / 1000 450 / 450 NS Inj 1,000 ML @ 50 mls/hr IV. 1000 / 1000 CONT .Q20H [facility] Rx#:[id number] Oral 255 / 255 120 / 120 Output: Urine 0 / 0 Other: # Voids 5 1 Date of Last Bowel Movement 05/24/18 05/24/18 Vital Signs Temp Pulse Resp BP Pulse Ox 05/26/18 09:00 14 05/26/18 06:00 97.6 F 58 L 14 150/70 H 92 L 05/25/18 18:08 99.5 F 66 16 Laboratory Results - last 24 hr 05/26/18 05/26/18 07:51 10:16 WBC 6.6 RBC 3.81 L Hgb 12.5 Hct 37.6 MCV 98.6 MCH 32.8 MCHC 33.3 RDW 14.1 Plt Count 129 L D MPV 9.3 Neut % (Auto) 67.4 Lymph % (Auto) 18.5 [place] % (Auto) 7.5 Eos % (Auto) 5.8 H Baso % (Auto) 0.8 Neut # (Auto) 4.5 Lymph # (Auto) 1.2 [place] # (Auto) 0.5 Eos # (Auto) 0.4 Baso # (Auto) 0.1 WBC Differential . Differential Comment Auto diff final Sodium 146 H Potassium 3.8 Chloride 114 H Carbon Dioxide 26.3 Anion Gap 6 BUN 4 L Creatinine 0.59 Estimated GFR Greater than 89 Random Glucose 80 Calcium 8.5 Labs reviewed. Impressions Chest X-Ray 05/25/18 00:00 CONCLUSION: Underinflated examination with bibasilar opacity which could represent atelectasis or an interstitial or airspace process. There is a questionable small left pleural-based opacity which could indicate a small left effusion. These findings could be better evaluated with good inspiratory formal PA and lateral views of the chest, if needed. Review of Systems All other systems reviewed negative except as stated in HPI (Limitation: poor historian.) Mental Status Examination Appearance: Disheveled Consciousness: Alert Orientation: Person, Place, Date/Time (2017) Motor Activity: Other (No abnormal motor movements noted.) Speech: Unremarkable Language: Other (Somewhat rambling) Fund of Knowledge: Inadequate Attention and Concentration: Easily distracted Memory: Impaired Mood: Other (No reported issues with mood) Affect: Blunt Thought Process & Associations: Other (Remains slowed) Thought Content: Other (Ongoing poverty of thought) Hallucination Type: None Delusion Type: None Suicidal Ideation: No Homicidal Ideation: No Insight: Poor Judgment: Poor Assessment and Plan - Assessment (1) Major neurocognitive disorder due to another medical condition with behavioral disturbance Code(s): F02.81 - Dementia in other diseases classified elsewhere with behavioral disturbance Status: Acute (2) COPD (chronic obstructive pulmonary disease) Code(s): J44.9 - Chronic obstructive pulmonary disease, unspecified Status: Acute - Plan Plan: Continue Zyprexa as ordered; patient is not verbalizing as much psychotic material now that this agent has been adjusted. Continue Remeron as ordered but to consider titrating for further appetite stimulation. Hospitalist and palliative medicine input noted and appreciated. Continue to monitor on medical psychiatric unit. Continue other care as ordered. Justification for Continued Inpatient Stay: Risk for decompensation in less restrictive setting. Discharge Planning: Pending clarification of goals of care. Possible d/c to rehab following C Diff treatment. Case discussed with counselor. Request Healthcare Surrogate/Guardian Advocate?: Yes
[2018-05-26 10:31] LABS: Baso # (Auto) 0.1 th/mm3 (0.0-0.2); Baso % (Auto) 0.8 % (0.0-2.0); Eos # (Auto) 0.4 th/mm3 (0.0-0.4); Eos % (Auto) 5.8 % (0.0-4.0); Hematocrit 37.6 % (35.0-46.0); Hemoglobin 12.5 gm/dL (11.6-15.3); Lymph # (Auto) 1.2 th/mm3 (1.0-4.8); Lymph % (Auto) 18.5 % (9.0-44.0); Mean Corpuscular HGB Conc 33.3 % (32.0-36.0); Mean Corpuscular Hemoglobin 32.8 pg (27.0-34.0); Mean Corpuscular Volume 98.6 fL (80.0-100.0); Mean Platelet Volume 9.3 fL (7.0-11.0); Mono # (Auto) 0.5 th/mm3 (0.0-0.9); Mono % (Auto) 7.5 % (0.0-8.0); Neut # (Auto) 4.5 th/mm3 (1.8-7.7); Neut % (Auto) 67.4 % (16.0-70.0); Platelet Count 129 th/mm3 (150-450); Red Blood Count 3.81 mil/mm3 (4.00-5.30); Red Cell Distribution Width 14.1 % (11.6-17.2); White Blood Count 6.6 th/mm3 (4.0-11.0)
[2018-05-26] MEDS: Polyvinyl Alcohol/Povidone PF Opth Drops 0.4 ML Dropperette EACH EYE SCH ×5 (11:46→22:02)
--- NOTE | 2018-05-26 14:36 | P.PNPAL ---
Palliative care continues to follow along with Ms. Castro. Received call from Dr. Kerr regarding concern for patient not eating much. Possible PEG tube needed if goals continue to be aggressive. Cousin/guardian advocate has voiced he does not feel Ms. Castro would want a PEG tube for long-term feedings. Ms. Castro remains under involuntary status. While she remains under such guardian advocate/cousin, Felice, remains Ms. Castro's health care decision maker. To further explore possible transition to comfort measures with hospice services we would need to exhaust efforts to find additional reported family as per [place] Statues. It has been reported Ms. Castro has a son and siblings. Per [place] Statutes, when patient is not under involuntary status, medical proxy decision making would fall to patient's son. If son unavailable then possible siblings. If son and siblings are unavailable then cousin Don could serve in this role. [facility] requested with the following results:- * Gary Escamilla, possible brother: [phone]-- requesting call back. Unable to locate social media match. * Heather Lindseyjez, possible relative: [phone]-- requesting call back. Unable to locate social media matches. * Blayne Mcguire, possible son-- no phone number, potential match found on social media private message sent * Michi Maynor, possible relative: [phone]-- no answer, unable to leave message. No social media matches. Palliative care will review patient's condition with cousin/guardian advocate. If no return contact by above possible family members then would recommend proceeding with utilizing cousin as health care proxy. Palliative care will continue to follow throughout hospitalization.
--- NOTE | 2018-05-26 14:50 | P.PNPAL ---
Patient has been accepted at [facility], however her nutritional intake remains poor. Patient will likely need PEG tube placement if goals remain aggressive. Phone placed to patient's cousin/guardian advocate (Felice Kovacs) to discuss the benefits vs. burdens of PEG tube placement and to further clarify medical treatment goals. Mr. Kovacs does not believe the patient would want artificial nutrition intermediate project manager. He verbalizes understanding that although PEG tube placement would provide the patient with adequate nutritional intake, it would not improve the patient's quality of life. He is considering transitioning to comfort focused care. Hospice has been consulted per Mr. Kovacs's request. Dr. Kerr was notified.
[2018-05-26] MEDS: Acetaminophen 500 MG Tablet PO PRN (18:28)
[2018-05-27] MEDS: Polyvinyl Alcohol/Povidone PF Opth Drops 0.4 ML Dropperette EACH EYE SCH ×6 (02:15→23:58)
[2018-05-27] MEDS: Levothyroxine 50 MCG Tablet PO SCH (05:43)
--- NOTE | 2018-05-27 08:57 | P.PNPAL ---
Received call from patient's son, Blayne Mcguire, . He confirms Ms. Castro is his mother. Reports he is an only child. States they have been estranged for over 40 years with contact from [id number] as he still checks in on her through other family. Blayne tells me Ms. Castro has suffered from mental illness her whole life which is the reason for the estrangement. Blayne would like to be involved in medial decision making for his mother. Informed him of patient's current involuntary status and assistance from Don Guard with medical decision making up until this point. At this point it would be reasonable to include patient's biological son and guardian advocate in medical decision making as once involuntary status is lifted at discharge, per [place] Statutes, medical proxy decision making would fall to patient's son. Blayne also confirms Ms. Casrto would not want a long-term feeding tube and believes she would not care for it properly. Gently reviewed hospice services and he also feels this would be the best option for Ms. Castro. Palliative care INTERIOR DESIGN DIRECTOR to call Blayne and provide medical update to further review and discuss goals of medical treatment. Hospice currently consulted. Informed hospice port engineer of above. Palliative care will continue to follow throughout hospitalization.
[2018-05-27] MEDS: Budesonide-Formoterol 160/4.5 MCG 6 GM Inhaler INH SCH ×2 (09:08→21:03)
[2018-05-27] MEDS: OLANZapine 2.5 MG Tablet PO SCH ×2 (09:09→21:02)
[2018-05-27] MEDS: Potassium Bicarbonate 25 MEQ Effervescent Tablet PO SCH (09:09)
[2018-05-27] MEDS: guaiFENesin 600 MG ER Tablet PO SCH ×2 (09:09→21:02)
[2018-05-27] MEDS: Lactobacillus Acidophilus/L. Spores Tablet PO SCH ×3 (09:09→17:37)
[2018-05-27] MEDS: Nystatin 100,000 UNITS/GM Powder 15 GM Bottle TOPICAL SCH ×4 (09:09→21:02)
[2018-05-27] MEDS: Heparin - SQ 10,000 UNITS/ML Vial SQ SCH ×3 (09:10→21:03)
[2018-05-27] MEDS: Lisinopril 5 MG Tablet PO SCH (09:15)
[2018-05-27] MEDS: Sodium Chloride 0.9% 2 ML Flush BID IV.FLUSH SCH ×2 (09:15→21:03)
[2018-05-27] MEDS: Acetaminophen 500 MG Tablet PO PRN (09:43)
--- NOTE | 2018-05-27 11:38 | P.PNPSY ---
Subjective Chief Complaint: Nick Act Remarks: Patient seen and examined with nurse. Chart reviewed. Patient ate 25/0/25% of meals yesterday. Case discussed with RN. On my exam, patient is alert and seems to be in better spirits. She denies any AVH. Remains confused. Palliative medicine has been in communication with HCS and patient's son, both of whom are supportive of hospice placement. Case discussed with hospice nurse who came to visit with patient today. Plan of care discussed with patient, and she is agreeable to going to facility with hospice. No reported medication side effects. No acute physical complaints. Vital Signs Temp Pulse Resp BP Pulse Ox 05/27/18 07:52 98 05/27/18 06:00 98.1 F 65 16 174/79 H 98 05/26/18 16:25 98.3 F 63 15 177/78 H 97 Intake and Output 05/26/18 05/27/18 05/27/18 22:59 06:59 14:59 Intake Total 240 / 240 Balance 240 / 240 Intake: Oral 240 / 240 Other: # Incontinent Voids 3 # Bowel Movements 1 # Incontinent Bowel Movements 1 Weight 77.5 kg Labs reviewed. No new labs. Review of Systems All other systems reviewed negative except as stated in HPI (Limitation: Poor historian) Mental Status Examination Appearance: Disheveled Consciousness: Alert Orientation: Person, Place Motor Activity: Other (No motor abnormalities noted) Speech: Unremarkable Language: Other (Somewhat rambling) Fund of Knowledge: Inadequate Attention and Concentration: Easily distracted Memory: Impaired Mood: Appropriate Affect: Appropriate, Euthymic Thought Process & Associations: Other (Remains slowed) Thought Content: Other (Poverty of thought) Hallucination Type: None (Denies AVH) Delusion Type: None Suicidal Ideation: No Homicidal Ideation: No Insight: Poor Judgment: Poor Assessment and Plan - Assessment (1) Major neurocognitive disorder due to another medical condition with behavioral disturbance Code(s): F02.81 - Dementia in other diseases classified elsewhere with behavioral disturbance Status: Acute (2) COPD (chronic obstructive pulmonary disease) Code(s): J44.9 - Chronic obstructive pulmonary disease, unspecified Status: Acute - Plan Plan: Continue Zyprexa and Remeron as ordered. Palliative medicine input noted and appreciated. Continue to monitor on the medical psychiatric unit. Continue other medications and care as ordered. Justification for Continued Inpatient Stay: Discharge planning. Discharge Planning: Anticipate discharge tomorrow, Thursday, to [facility] with hospice. Request Healthcare Surrogate/Guardian Advocate?: Yes
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
[2018-05-28] MEDS: Polyvinyl Alcohol/Povidone PF Opth Drops 0.4 ML Dropperette EACH EYE SCH ×4 (01:44→13:18)
[2018-05-28 06:27] VITALS: BP 157/69; TEMP 98.4
[2018-05-28] MEDS: Levothyroxine 50 MCG Tablet PO SCH (07:09)
[2018-05-28] MEDS: Potassium Bicarbonate 25 MEQ Effervescent Tablet PO SCH (08:56)
[2018-05-28] MEDS: Lactobacillus Acidophilus/L. Spores Tablet PO SCH ×2 (08:56→12:45)
[2018-05-28] MEDS: guaiFENesin 600 MG ER Tablet PO SCH (08:56)
[2018-05-28] MEDS: Lisinopril 5 MG Tablet PO SCH (08:57)
[2018-05-28] MEDS: Budesonide-Formoterol 160/4.5 MCG 6 GM Inhaler INH SCH (08:57)
[2018-05-28] MEDS: OLANZapine 2.5 MG Tablet PO SCH (08:57)
[2018-05-28] MEDS: Nystatin 100,000 UNITS/GM Powder 15 GM Bottle TOPICAL SCH ×2 (08:57→12:10)
[2018-05-28] MEDS: Sodium Chloride 0.9% 2 ML Flush BID IV.FLUSH SCH (08:57)
[2018-05-28] MEDS: Heparin - SQ 10,000 UNITS/ML Vial SQ SCH (08:58)
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
[2018-05-28 12:45] VITALS: PULSE 75; RESP 18
[2018-05-28 12:46] VITALS: O2SAT 96
--- NOTE | 2018-05-28 13:58 | P.DIET ---
Nutritional Evaluation Type of nutrition evaluation: follow-up Nutrition consult regarding: Diet Evaluation Nutrition screening: Poor PO Intake Screening comments: 05/18 [facility] poor PO intake Subjective Barriers to Nutrition: Refuses to eat at times Subjective Comments: MICHAELA Rocha reports pt's son does not want pt to have a TF'ing Objective - Diagnosis AMS - Objective % IBW: 183 (IBW = 90lb) Body Weight Used for Calculations: Actual (74.7kg) Energy Needs - Lower Range (kCal/kg): 22 Energy Needs - Upper Range (kCal/kg): 25 Lower Limit kCal/kg (kCals): 1,643 Upper Limit kCal/kg (kCals): 1,868 Lower Limit Protein Factor (Grams per Kg): 1.1 Upper Limit Protein Factor (Grams per Kg): 1.3 Lower Protein Needs (Protein): 82 Upper Protein Needs (Protein): 97 Dietitian Reviewed in Medical Record: Current diet, Curent medications, Intake & Output, Labs, Medical history Diet Order: Cardiac Oral Diet Intake Amount: Poor <50% Objective Comments: PMH: COPD, GERD, high cholesterol, HTN, hypothyroidism, legally blind, TIA Labs include: A1C 4.5 Meds include: Remeron, Lactinex, Synthroid, Lisinopril, Bystolic, Zyprexa Feeding - Current PO Supplement Current Supplement: Ensure Enlive Current Frequency of Supplement: Three times a day Current kCals Provided by Supplement: 350 Current Protein Provided by Supplement: 20 - kCal Count Day 1 kCal Intake: 100 Day 1 Protein Intake: 1 Day 2 kCal Intake: 280 Day 2 Protein Intake: 1 Day 3 kCal Intake: 280 Day 3 Protein Intake: 1 Assessment Assessment: Pt continues at nutritional risk r/t poor PO intake. Pt refuses meals daily. Calorie Count started 05/25 through 05/27 w/Inadequate po intake averaging 220 kcal and 1g protein daily. Pt needs an alternative method of nutrition, if consistent w/goal of care at this time. Continue Mighty Shake w/meals. Noted pt is receiving Remeron and this may stimulate appetite. Please Consult RD as needed. Recommendations: 1. Calorie Count started 05/25 through 05/27 w/Inadequate po intake averaging 220 kcal and 1g protein daily 2. Pt needs an alternative method of nutrition, if consistent w/goal of care at this time 3. Continue Mighty Shake w/meals 4. Noted pt is receiving Remeron and this may stimulate appetite 5. Please Consult RD as needed
== END 2018-05-28 16:43 | disposition hospice, inpatient (51) ==
LOC: H250 13:50 → H4EA 05-12 15:42
PROVIDERS: ADMIT Psychiatry & Neurology Psychiatry; ATTEND Psychiatry & Neurology Psychiatry
DX: Z99.81 Dependence on supplemental oxygen; E78.00 Pure hypercholesterolemia, unspecified; F41.9 Anxiety disorder, unspecified; A04.72 Enterocolitis due to Clostridium difficile, not specified as recurrent; E87.0 Hyperosmolality and hypernatremia; G89.29 Other chronic pain; Z51.5 Encounter for palliative care; J44.9 Chronic obstructive pulmonary disease, unspecified; Z86.73 Personal history of transient ischemic attack (TIA), and cerebral infarction without residual deficits; Z79.899 Other long term (current) drug therapy; H54.8 Legal blindness, as defined in USA; H40.9 Unspecified glaucoma; Z90.49 Acquired absence of other specified parts of digestive tract; M25.562 Pain in left knee; N39.0 Urinary tract infection, site not specified; F02.81 Dementia in other diseases classified elsewhere, unspecified severity, with behavioral disturbance; I10 Essential (primary) hypertension; B96.89 Other specified bacterial agents as the cause of diseases classified elsewhere; F32.9 Major depressive disorder, single episode, unspecified; E78.5 Hyperlipidemia, unspecified; M25.561 Pain in right knee; R41.89 Other symptoms and signs involving cognitive functions and awareness; F09 Unspecified mental disorder due to known physiological condition; Z79.890 Hormone replacement therapy; R63.4 Abnormal weight loss; K21.9 Gastro-esophageal reflux disease without esophagitis; E87.6 Hypokalemia; J96.20 Acute and chronic respiratory failure, unspecified whether with hypoxia or hypercapnia; H01.009 Unspecified blepharitis unspecified eye, unspecified eyelid; E03.9 Hypothyroidism, unspecified; Z87.891 Personal history of nicotine dependence